=== PATIENT | female | born 2000 | race Caucasian/White ===

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

== ENCOUNTER 2020-11-18 09:15 | Emergency (ER) | payer OTHER ==
[2020-11-18 09:19] VITALS: BP 126/84; PULSE 101; RESP 20; TEMP 98
[2020-11-18] MEDS ORDERED: DIPH,PERTUS(ACELL)TETVAC-LF 0.5 ML VIAL IM ONE (09:28)
--- NOTE | 2020-11-18 09:30 | ED ---
Animal Bite HPI - General Chief Complaint: Animal Bite Stated Complaint: dog bite rt thumb Time Seen by Provider: 11/18/20 09:20 Source: patient, RN notes reviewed Mode of arrival: ambulatory Limitations: no limitations - History of Present Illness Initial Comments: This a 20-year-old female sent emergency Department chief complaint of dog bite. Patient states she was bit by her significant other's dog yesterday. She is unsure when her last tetanus was. up-to-date vaccinations. Patient states that his slightly painful today. No fevers or chills mild redness no other complaints. - Related Data Home Medications Medication Instructions Recorded Confirmed Methylphenidate HCl [Concerta] 72 mg PO DAILY 08/15/15 08/26/17 Cetirizine HCl [Zyrtec] 10 mg PO HS 03/07/17 08/26/17 Falmina-28 1 tab PO DAILY 03/07/17 08/26/17 Montelukast [Singulair] 10 mg PO HS 03/07/17 08/26/17 cloNIDine HCL [Catapres] 0.2 mg PO HS 03/07/17 08/26/17 guanFACINE HCL [Intuniv] 2 mg PO DAILY 03/07/17 08/26/17 hydrOXYzine pamoate [Vistaril] 50 mg PO HS 08/26/17 08/26/17 Previous Rx's Medication Instructions Recorded Ondansetron [Zofran ODT] 4 mg PO Q8HR PRN #10 tab 11/01/17 Cephalexin [Keflex] 500 mg PO Q6HR #28 cap 12/07/17 Ibuprofen [Motrin] 600 mg PO Q6HR PRN #30 tab 12/07/17 Amoxicillin/Potassium Clav 1 tab PO Q12HR #20 tab 11/18/20 [Augmentin 875-125 Tablet] Allergies Allergy/AdvReac Type Severity Reaction Status Date / Time No Known Allergies Allergy Verified 11/18/20 09:19 Review of Systems ROS Statement: Those systems with pertinent positive or pertinent negative responses have been documented in the HPI. ROS Other: All systems not noted in ROS Statement are negative. Past Medical History Past Medical History: No Reported History History of Any Multi-Drug Resistant Organisms: None Reported Past Surgical History: No Surgical Hx Reported Past Psychological History: ADD/ADHD Smoking Status: Never smoker Past Alcohol Use History: None Reported Past Drug Use History: None Reported General Exam Limitations: no limitations General appearance: alert, in no apparent distress Head exam: Present: atraumatic, normocephalic, normal inspection Respiratory exam: Present: normal lung sounds bilaterally. Absent: respiratory distress, wheezes, rales, rhonchi, stridor Cardiovascular Exam: Present: regular rate, normal rhythm, normal heart sounds. Absent: systolic murmur, diastolic murmur, rubs, gallop, clicks Extremities exam: Present: other (Right thumb there are a few puncture wounds noted mild erythema patient does have mild discomfort over the area full range of motion neurovascular intact no evidence of lymphangitis) Course Vital Signs 11/18/20 09:16 Temperature 98 F Pulse Rate 101 H Respiratory 20 Rate Blood Pressure 126/84 O2 Sat by Pulse 99 Oximetry Medical Decision Making - Medical Decision Making Patient's tetanus is updated patient was placed on Augmentin. Patient will follow-up for recheck in 24 hours return parameters were discussed. Disposition Clinical Impression: Dog bite Disposition: HOME SELF-CARE Condition: Stable Instructions (If sedation given, give patient instructions): Animal Bite (ED) Additional Instructions: Please return to the Emergency Department if symptoms worsen or any other concerns. Prescriptions: Amoxicillin/Potassium Clav [Augmentin 875-125 Tablet] 1 tab PO Q12HR #20 tab Is patient prescribed a controlled substance at d/c from ED?: No Referrals: Denis Marsh DO [Primary Care Provider] - 1-2 days Time of Disposition: 09:30
== END 2020-11-18 09:45 | disposition home or self-care (01) ==
LOC: EC 09:15
DX: S61.031A Puncture wound without foreign body of right thumb without damage to nail, initial encounter (principal); Z23 Encounter for immunization; F90.9 Attention-deficit hyperactivity disorder, unspecified type; W54.0XXA Bitten by dog, initial encounter
CPT/HCPCS: 90471; 90715; 99283

== ENCOUNTER 2020-11-27 00:51 | Emergency (ER) | payer OTHER ==
[2020-11-27 00:59] VITALS: BP 124/67; PULSE 95; RESP 18; TEMP 98.2
[2020-11-27] MEDS ORDERED: NEOMYCIN-POLYMYXIN-HC (3.5-10,000-10 MG) OTIC DROPS 10 ML BTL RIGHT EAR STA (01:25)
--- NOTE | 2020-11-27 01:26 | ED ---
ENT HPI - General Chief complaint: ENT Stated complaint: RT earache Time Seen by Provider: 11/27/20 01:00 Source: patient, family Mode of arrival: ambulatory Limitations: no limitations - History of Present Illness Initial comments: This patient is a 20-year-old woman who presents with complaint that she is having right ear pain. Symptoms started in the early afternoon today. She denies any change in her hearing. No vertigo. She is not having upper respiratory symptoms. No congestion, rhinorrhea, cough or sore throat. No ear trauma. No drainage from the ear. The patient states that she is 27 weeks by ultrasound. She denies any symptoms related to . MD complaint: ear pain Onset/Timin -: hour(s) Location: R ear Severity: moderate Quality: aching Consistency: constant Improves with: none Worsens with: other (Palpation) - Related Data Home Medications Medication Instructions Recorded Confirmed Methylphenidate HCl [Concerta] 72 mg PO DAILY 08/15/15 08/26/17 Cetirizine HCl [Zyrtec] 10 mg PO HS 03/07/17 08/26/17 Falmina-28 1 tab PO DAILY 03/07/17 08/26/17 Montelukast [Singulair] 10 mg PO HS 03/07/17 08/26/17 cloNIDine HCL [Catapres] 0.2 mg PO HS 03/07/17 08/26/17 guanFACINE HCL [Intuniv] 2 mg PO DAILY 03/07/17 08/26/17 hydrOXYzine pamoate [Vistaril] 50 mg PO HS 08/26/17 08/26/17 Previous Rx's Medication Instructions Recorded Ondansetron [Zofran ODT] 4 mg PO Q8HR PRN #10 tab 11/01/17 Cephalexin [Keflex] 500 mg PO Q6HR #28 cap 12/07/17 Ibuprofen [Motrin] 600 mg PO Q6HR PRN #30 tab 12/07/17 Amoxicillin/Potassium Clav 1 tab PO Q12HR #20 tab 11/18/20 [Augmentin 875-125 Tablet] Allergies Allergy/AdvReac Type Severity Reaction Status Date / Time No Known Allergies Allergy Verified 11/27/20 00:58 Review of Systems ROS Statement: Those systems with pertinent positive or pertinent negative responses have been documented in the HPI. ROS Other: All systems not noted in ROS Statement are negative. Constitutional: Denies: fever, chills ENT: Reports: ear pain. Denies: throat pain, dental pain, hearing loss, congestion Respiratory: Denies: cough, dyspnea Cardiovascular: Denies: chest pain, palpitations Gastrointestinal: Denies: abdominal pain, nausea, vomiting Neurological: Denies: headache Past Medical History Past Medical History: No Reported History History of Any Multi-Drug Resistant Organisms: None Reported Past Surgical History: No Surgical Hx Reported Past Psychological History: ADD/ADHD Smoking Status: Never smoker Past Alcohol Use History: None Reported Past Drug Use History: None Reported General Exam Limitations: no limitations General appearance: alert, in no apparent distress Head exam: Present: atraumatic, normocephalic Eye exam: Present: normal appearance. Absent: scleral icterus, conjunctival injection ENT exam: Present: normal oropharynx, mucous membranes moist, TM's normal bilaterally. Absent: normal external ear exam (Mild erythema and edema of the right external auditory canal. Tenderness at the tragus. Tympanic membrane normal.) Neck exam: Present: normal inspection, full ROM. Absent: tenderness, meningismus, lymphadenopathy Neurological exam: Present: alert Skin exam: Present: warm, dry, intact, normal color. Absent: rash Course Vital Signs 11/27/20 00:57 Temperature 98.2 F Pulse Rate 95 Respiratory 18 Rate Blood Pressure 124/67 O2 Sat by Pulse 99 Oximetry Medical Decision Making - Medical Decision Making Patient is a 20-year-old woman with acute otitis externa. Discussed appropriate treatment, further care and follow-up. Discussed use of acetaminophen for earache. Discussed return parameters Disposition Clinical Impression: Otitis externa Disposition: HOME SELF-CARE Condition: Good Instructions (If sedation given, give patient instructions): Otitis Externa (ED) Is patient prescribed a controlled substance at d/c from ED?: No Referrals: Denis Marsh DO [Primary Care Provider] - 1-2 days
== END 2020-11-27 02:09 | disposition home or self-care (01) ==
LOC: EC 00:51
DX: O99.893 Other specified diseases and conditions complicating puerperium (principal); H60.91 Unspecified otitis externa, right ear; Z3A.27 27 weeks gestation of pregnancy
CPT/HCPCS: 99282

== ENCOUNTER 2021-01-19 21:45 | Outpatient (CLI) | payer OTHER ==
[2021-01-19 22:59] VITALS: BP 121/76; PULSE 120; RESP 16; TEMP 98
--- NOTE | 2021-01-20 06:27 | P.MSEPDOC ---
Presenting Problems - Arrival Data Date of Arrival on Unit: 01/19/21 Time of Arrival on Unit: 21:45 Mode of Transport: Ambulatory - Complaint OB-Reason for Admission/Chief Complaint: Pain Comment: Pt states abd pain that has been happening since yesterday, unable to time pain. but states it comes and goes. Rates pain 8/10 when having pain. Medical History - Information : 1 Para: 0 Term: 0 : 0 Abortions: Spontaneous or Elective: 0 Number of Living Children: 0 - Gestational Age Gestational Age by YECENIA (wks/days): 35 Weeks and 0 Days Review of Systems - Review of Systems Constitutional: No problems Breast: No problems ENT: No problems Cardiovascular: No problems Respiratory: No problems Gastrointestinal: No problems Genitourinary: No problems Musculoskeletal: No problems Neurological: No problems Skin: No problems Vital Signs - Temperature Temperature: 98 F Temperature Source: Oral - Pulse Right Brachial Pulse Rate: 120 Pulse Assessment Method: Automatic Cuff - Respirations Respiratory Rate: 16 Oxygen Delivery Method: Room Air - Blood Pressure Right Arm Blood Pressure: 121/76 Blood Pressure Mean: 91 Blood Pressure Source: Automatic Cuff Medical Screen Scoring - Cervical Exam Dilation (cm): 0 Effacement (%): 0 Station: -3 Membranes: Intact - Uterine Contractions Frequency From (mins): 3 Frequency To (mins): 10 Duration From (seconds): 40 Duration To (seconds): 55 Intensity: Mild Resting: Soft to palpation - Assessment - Baby A Baseline FHR: 145 Heart Rate - NICHD Category: Category I (Normal) Physician Notification - Physician Notified Physician Notified Date: 01/19/21 Physician Notified Time: 21:41 Physician: Milo Torres New Order Received: Yes - Notification Comment Comment: D/c home at this time, follow up with Dr. Hampton 01/25/21 Maternal Triage Index - Maternal Triage Index Presenting for scheduled procedure w/no complaint: No - Stat/Priority 1 Stat Priority 1: No - Urgent/Priority 2 Urgent Priority 2: No - Prompt/Priority 3 Prompt Priority 3: Yes Criteria Met for Priority 3: GA 35 weeks, c/o contractions Disposition - Disposition OB Disposition: Discharge to home, Written follow up instructions reviewed Discharge Date: 01/19/21 Discharge Time: 21:45 I agree with the RN Medical Screening Exam: Yes Case reviewed; plan agreed upon as documented in EMR&OBIX.: Yes Diagnosis: FALSE LABOR BEFORE 37 COMPLETED WEEKS OF GEST, THIRD TRI
== END 2021-01-19 22:45 | disposition home or self-care (01) ==
LOC: FBPOP 21:45
PROVIDERS: ATTEND Obstetrics & Gynecology
DX: O47.03 False labor before 37 completed weeks of gestation, third trimester (principal); Z3A.35 35 weeks gestation of pregnancy
CPT/HCPCS: 59025; G0463; 99213

== ENCOUNTER 2021-02-18 20:10 | Outpatient (CLI) | payer OTHER ==
[2021-02-18 21:35] VITALS: BP 137/80; PULSE 104; RESP 16; TEMP 96.6
--- NOTE | 2021-02-19 11:53 | P.MSEPDOC ---
Presenting Problems - Arrival Data Date of Arrival on Unit: 02/18/21 Time of Arrival on Unit: 20:10 Mode of Transport: Ambulatory - Complaint OB-Reason for Admission/Chief Complaint: Possible Onset of Labor Comment: Contractions every 3 minutes since 1800, pain 10 Medical History - Information : 1 Para: 0 Term: 0 : 0 Abortions: Spontaneous or Elective: 0 Number of Living Children: 0 - Gestational Age Gestational Age by YECENIA (wks/days): 39 Weeks and 2 Days Review of Systems - Review of Systems Constitutional: No problems Breast: No problems ENT: No problems Cardiovascular: No problems Respiratory: No problems Gastrointestinal: No problems Genitourinary: No problems Musculoskeletal: No problems Neurological: No problems Skin: No problems Vital Signs - Temperature Temperature: 96.6 F Temperature Source: Temporal Artery Scan - Pulse Right Brachial Pulse Rate: 104 Pulse Assessment Method: Automatic Cuff - Respirations Respiratory Rate: 16 Oxygen Delivery Method: Room Air - Blood Pressure Right Arm Blood Pressure: 137/80 Blood Pressure Mean: 99 Blood Pressure Source: Automatic Cuff Medical Screen Scoring - Cervical Exam Dilation (cm): 1.5 Effacement (%): 80 Station: -2 Membranes: Intact - Uterine Contractions Intensity: Mild Resting: Soft to palpation - Assessment - Baby A Baseline FHR: 135 Heart Rate - NICHD Category: Category I (Normal) NST: Reactive Physician Notification - Physician Notified Physician Notified Date: 02/18/21 Physician Notified Time: 21:18 Physician: Selene Louis Order Received: Yes - Notification Comment Comment: D/c home, pt to return to [facility] for [facility]OL on saturday02/20/21 Maternal Triage Index - Maternal Triage Index Presenting for scheduled procedure w/no complaint: No - Stat/Priority 1 Stat Priority 1: No - Urgent/Priority 2 Urgent Priority 2: No - Prompt/Priority 3 Prompt Priority 3: No - Non-Urgent/Priority 4 Non-Urgent Priority 4: Yes Criteria Met for Priority 4: Contractions every 3 minutes per pt Disposition - Disposition OB Disposition: Discharge to home, Written follow up instructions reviewed Discharge Date: 02/18/21 Discharge Time: 21:20 I agree with the RN Medical Screening Exam: Yes Case reviewed; plan agreed upon as documented in EMR&OBIX.: Yes Diagnosis: FALSE LABOR AT OR AFTER 37 COMPLETED WEEKS OF GESTATION
== END 2021-02-18 21:22 | disposition home or self-care (01) ==
LOC: FBPOP 20:10
PROVIDERS: ATTEND Obstetrics & Gynecology
DX: O47.1 False labor at or after 37 completed weeks of gestation (principal); Z3A.39 39 weeks gestation of pregnancy
CPT/HCPCS: 59025; G0463; 99213

== ENCOUNTER 2021-02-19 19:43 | Inpatient (IN) | payer OTHER ==
[2021-02-19] MEDS ORDERED: CARBOPROST TROMETHAMINE 250 MCG/ML 1 ML AMP IM PRN (21:18)
[2021-02-19] MEDS ORDERED: METHYLERGONOVINE 0.2 MG/ML 1 ML AMP IM PRN (21:18)
[2021-02-19] MEDS ORDERED: TERBUTALINE 1 MG/ML VIAL SQ PRN (21:18)
[2021-02-19] MEDS ORDERED: LIDOCAINE 0.5% (PF) 5 MG/ML (50 ML SDV) SQ PRN (21:18)
[2021-02-19] MEDS ORDERED: OXYTOCIN 10 UNIT/ML 1 ML VIAL IM PRN (21:18)
[2021-02-19] MEDS ORDERED: OXYTOCIN 30 UNITS/500 ML NS 30 UNIT in SALINE 1 500ML.BAG IV SCH (21:30)
[2021-02-19] MEDS ORDERED: BUTORPHANOL 1 MG/ML 1 ML VIAL IV PRN (22:43)
[2021-02-19 23:04] LABS: Basophils # (A) 0.1 k/uL (0-0.2); Basophils % (A) 0 %; Eosinophils # (A) 0.3 k/uL (0-0.7); Eosinophils % (A) 2 %; HCT 36.2 % (34.0-46.0); HGB 12.1 gm/dL (11.4-16.0); Lymphocytes # (A) 2.4 k/uL (1.0-4.8); Lymphocytes % (A) 13 %; MCH 27.7 pg (25.0-35.0); MCHC 33.5 g/dL (31.0-37.0); MCV 82.6 fL (80.0-100.0); Mean Platelet Volume 9.5; Monocytes # (A) 1.2 k/uL (0-1.0); Monocytes % (A) 7 %; Neutrophils % (A) 77 %; Platelet Count 313 k/uL (150-450); RBC 4.39 m/uL (3.80-5.40); RDW 13.1 % (11.5-15.5); WBC 18.3 k/uL (4.0-11.0)
[2021-02-19] MEDS: LACTATED RINGERS 1,000 ML IV SCH (23:19)
[2021-02-20] MEDS: LACTATED RINGERS 1,000 ML IV SCH ×4 (01:54→11:27)
--- NOTE | 2021-02-20 02:29 | P.HPOB ---
History of Present Illness H&P Date: 02/20/21 Chief Complaint: Contractions This is a 20-year-old female 1 para 0 with an estimated date of confinement of 02/23/2021, estimated gestational age of 39-3/7 weeks, who presents to labor and delivery complaining of contractions for the last few days that became stronger this evening. She denies any rupture of membranes. She does state she was noticing her mucous plug coming out. care has been with Dr. Hampton and has been essentially uncomplicated. labs: Group B streptococcus-negative Hemoglobin-11.5 1 hour Glucola-121 Obstetrical ultrasound-normal anatomy Blood type-A- Antibody screen-negative Hemoglobin-11.9 Rubella-immune RPR-nonreactive H IV-negative Hepatitis B surface antigen-negative GC/chlamydia-negative Trichomonas-negative RhoGAM was given at approximately 35 weeks Review of Systems Constitutional: Denies chills, Denies fever Eyes: denies blurred vision, denies pain Ears, nose, mouth and throat: Denies headache, Denies sore throat Cardiovascular: Denies chest pain, Denies shortness of breath Respiratory: Denies cough Gastrointestinal: Reports abdominal pain (Contractions) Genitourinary: Reports pelvic pain, Reports Musculoskeletal: Reports low back pain Integumentary: Denies pruritus, Denies rash Neurological: Denies numbness, Denies weakness Psychiatric: Reports anxiety Past Medical History Past Medical History: No Reported History History of Any Multi-Drug Resistant Organisms: None Reported Past Surgical History: No Surgical Hx Reported Past Anesthesia/Blood Transfusion Reactions: No Reported Reaction Past Psychological History: ADD/ADHD Smoking Status: Never smoker Past Alcohol Use History: None Reported Past Drug Use History: None Reported - Past Family History Mother Family Medical History: Osteoarthritis (OA) Medications and Allergies Home Medications Medication Instructions Recorded Confirmed Type Cholecalciferol (Vitamin D3) 125 mcg PO DAILY 01/19/21 02/19/21 History [Vitamin D3 (125 MCG = 5,000 IU)] Pnv No.95/Ferrous Fum/Folic AC 1 tab PO ONCE 01/19/21 02/19/21 History [ Multivitamin Tablet] Allergies Allergy/AdvReac Type Severity Reaction Status Date / Time No Known Allergies Allergy Verified 02/18/21 21:30 Exam Osteopathic Statement: *. No significant issues noted on an osteopathic structural exam other than those noted in the History and Physical/Consult. Vital Signs Temp Pulse Resp BP Pulse Ox 02/19/21 21:50 94 18 139/78 98 02/19/21 20:06 35.4 F L 123 H 18 155/85 98 Intake and Output 02/19/21 02/19/21 02/20/21 14:59 22:59 06:59 Other: # Voids 2 Weight 83.007 kg HEENT: Within normal limits Heart: Regular rate and rhythm Lungs: Clear to auscultation bilaterally Abdomen: Cervix: Initially on admission is 2 cm/80%/-3 station. Currently she is 7-8 cm /100%/-2 station. Bulging bag of noted and artificial rupture membranes is carried out with clear fluid noted. heart tones: 140s with initially category 1 tracing. Currently after her epidural, she has had some late decelerations that have resolved with position changes. Contractions: Every couple minutes Extremities: Negative Homans Results Result Diagrams: 02/19/21 22:53 Abnormal Lab Results - Last 24 Hours (Table) 02/19/21 Range/Units 22:53 WBC 18.3 H (4.0-11.0) k/uL Neutrophils # 14.0 H (1.3-7.7) k/uL Monocytes # 1.2 H (0-1.0) k/uL Assessment and Plan (1) 39 weeks gestation of Current Visit: Yes Status: Acute Code(s): Z3A.39 - 39 WEEKS GESTATION OF SNOMED Code(s): 52343959 Plan: Admission for active labor. Epidural anesthesia. Expectant management.
[2021-02-20] MEDS ORDERED: AMPICILLIN 2,000 MG in SODIUM CHLORIDE 0.9% 100 ML IVPB STA (03:11)
[2021-02-20] MEDS ORDERED: CITRIC ACID-SODIUM CITRATE 15 ML CUP PO ONE (03:52)
--- NOTE | 2021-02-20 05:03 | P.OP ---
Date of Procedure: 02/20/21 Preoperative Diagnosis: 1. Intrauterine at 39-3/7 weeks. 2. tachycardia with decreased variability. Postoperative Diagnosis: Same Procedure(s) Performed: Primary low transverse section Anesthesia: epidural Surgeon: Selene Louis Code Official #1: Jazz Viramontes Estimated Blood Loss (ml): 400 Pathology: other (Placenta) Condition: stable Disposition: floor Indications for Procedure: This is a 20-year-old female 1 para 0 at 39-3/7 weeks who presented in early active labor. When she arrived she was noted to be 2 cm and did make change to 4 cm.She did receive 1 dose of Stadol and then requested epidural. Shortly after the epidural, she began having some late decelerations. These did resolve somewhat with position changing. Artificial rupture membranes was carried out at 7-1/2 cm. Clear fluid was noted. Shortly after this, she began having progressive tachycardia up to the 170s to 180s with decreased variability. She was started on ampicillin due to elevated white count despite group B strep negative. When this did not resolve, the decision was made to proceed with urgent Kelsi a section. I have discussed the risks, benefits, and alternative therapies for the above- mentioned procedure and for both sedation/anesthesia as well as necessary blood products administration, if indicated, as they pertain to this patient. The patient has indicated her understanding and acceptance of the risks and procedures discussed. Operative Findings: A viable male infant is noted in the vertex presentation with scores of 5 at 1 minute 6 at 5 minutes and 9 at 10 minutes and nuchal cord times one. Infant weight was 7 lbs. 7 oz. Normal uterus tubes and ovaries are noted. Description of Procedure: The patient is taken to the operating room where she is placed in the dorsal supine position with leftward tilt after Epidural anesthesia is bolused. She is prepped and draped in the normal sterile fashion including vaginal prep. Skin was tested and found to be adequately anesthetized. A Pfannenstiel skin incision was made with a scalpel. A second knife was used to carry the incision down to the underlying layer of fascia. The fascia was nicked in the midline with a scalpel and then extended laterally bilaterally with Armenta scissors. The anterior lip of the fascia was grasped with 2 Latoya clamps and then dissected off the underlying rectus muscle in the midline with Armenta scissors. The inferior aspect of the fascial incision was grasped with 2 Latoya clamps and dissected off the underlying rectus muscle and the midline with Armenta scissors. Next the peritoneum layer was tented up with 2 hemostats and then entered sharply with the scalpel. The incision is extended superiorly and inferiorly with Metzenbaum scissors. Next a DeLee retractor is placed. The vesicouterine peritoneum is entered sharply with Metzenbaum scissors and extended laterally bilaterally with Metzenbaum scissors and then the bladder flap is pushed i nferiorly. The lower uterine segment is incised in transverse fashion with the scalpel and then bluntly entered with a hemostat. Clear fluid is noted. The incision was then extended laterally bilaterally with 2 fingers. Next the 's head is delivered through the incision. Nose and mouth are bulb suctioned. Nuchal cord 1 is reduced around the 's head. The remainder of the is easily delivered and placed on mother's abdomen. Cord is clamped and cut. is taken to warmer by nursing staff. Uterine fundus is gently massaged and placenta is delivered manually. Uterus is exteriorized and cleared of all clots and debris. Uterine incision is closed with 0 Vicryl suture in a running locked fashion. A second layer of 0 Vicryl suture is used in a running fashion for hemostasis. Once adequate hemostasis as assured, the vesicouterine peritoneum is reapproximated with 2-0 Vicryl suture in a running fashion. Posterior cul-de-sac is suctioned of all clots and debris. Uterus is returned to the abdomen. Incision is noted to be hemostatic. Peritoneal layer is closed with 0 Vicryl suture in a running fashion. Muscle layer is reapproximated with 0 Vicryl suture in interrupted fashion. Fascia layer is then closed with 0 PDS suture with 2 sutures meeting in the midline and the knots buried in either side and in the midline. The subcutaneous tissue was then closed with 2-0 Vicryl suture. Skin layer was then closed with black. All sponge and needle counts are correct. The patient is taken to recovery room in stable condition. is taken to level I nursery for further evaluation.
[2021-02-20] MEDS ORDERED: HYDROmorphone 0.5 MG/0.5 ML SYRINGE IVP PRN (05:29)
[2021-02-20] MEDS ORDERED: ZOLPIDEM 5 MG TAB PO PRN (05:29)
[2021-02-20] MEDS ORDERED: SIMETHICONE 80 MG CHEWABLE PO PRN (05:29)
[2021-02-20] MEDS ORDERED: HYDROmorphone 1 MG/ML 1 ML SYRINGE IVP PRN (05:29)
[2021-02-20] MEDS ORDERED: ONDANSETRON 4 MG/2 ML VIAL IVP PRN (05:29)
[2021-02-20] MEDS ORDERED: diphenhydrAMINE 25 MG CAP PO PRN (05:29)
[2021-02-20] MEDS ORDERED: diphenhydrAMINE 50 MG/ML 1 ML VIAL IVP PRN ×2 (05:29)
[2021-02-20] MEDS ORDERED: diphenhydrAMINE 50 MG CAP PO PRN (05:29)
[2021-02-20] MEDS ORDERED: HYDROmorphone PCA 10 MG/50 ML BAG IV PRN (05:29)
[2021-02-20] MEDS ORDERED: OXYTOCIN 30 UNITS/500 ML NS 30 UNIT in SALINE 1 500ML.BAG IV SCH (05:29)
[2021-02-20] MEDS ORDERED: PRENATAL VIT-IRON-FOLIC ACID 1 EACH CAP PO ONE (05:29)
[2021-02-20] MEDS ORDERED: NALOXONE 0.4 MG/ML 1 ML VIAL IV PRN (05:29)
[2021-02-20] MEDS ORDERED: METOCLOPRAMIDE 5 MG/ML 2 ML VIAL IVP PRN (05:29)
[2021-02-20] MEDS: ACETAMINOPHEN TAB 500 MG TAB PO SCH ×3 (06:59→17:48)
[2021-02-20] MEDS ORDERED: AMPICILLIN 1,000 MG in SODIUM CHLORIDE 0.9% 50 ML IVPB SCH (07:15)
[2021-02-20] MEDS: SENNOSIDES-DOCUSATE SODIUM 1 EACH TAB PO SCH ×2 (08:34→19:31)
[2021-02-20] MEDS: KETOROLAC 15 MG/ML 1 ML VIAL IVP SCH ×2 (09:35→19:00)
[2021-02-20] MEDS: CHOLECALCIFEROL 25 MCG (1000 IU) TABLET PO SCH (09:36)
[2021-02-20] MEDS: PRENATAL VIT-IRON-FOLIC ACID 1 EACH CAP PO SCH (09:42)
[2021-02-20] MEDS: IBUPROFEN 600 MG TAB PO SCH ×3 (10:37→21:28)
[2021-02-20 11:40] VITALS: RESP 16
[2021-02-21] MEDS: ACETAMINOPHEN TAB 500 MG TAB PO SCH ×3 (04:12→22:10)
--- NOTE | 2021-02-21 08:04 | P.PN ---
Progress Note - Text Progress Note Date: 02/21/21 Status post , patient received spinal Duramorph for postop pain control. Patient was seen and examined bedside. Patient is comfortable lying down on the bed. Patient is able to walk without any difficulty. Denied any side effects with medications. Denied any bowel or bladder problems. Patient is hemodynamically stable. Vital signs reviewed in EMR.
[2021-02-21] MEDS: SENNOSIDES-DOCUSATE SODIUM 1 EACH TAB PO SCH ×2 (08:33→20:51)
[2021-02-21] MEDS: CHOLECALCIFEROL 25 MCG (1000 IU) TABLET PO SCH (08:34)
[2021-02-21] MEDS: PRENATAL VIT-IRON-FOLIC ACID 1 EACH CAP PO SCH (08:34)
[2021-02-21] MEDS: IBUPROFEN 600 MG TAB PO SCH ×3 (08:35→20:54)
[2021-02-21 08:39] LABS: Basophils # (A) 0.1 k/uL (0-0.2); Basophils % (A) 0 %; Eosinophils # (A) 0.2 k/uL (0-0.7); Eosinophils % (A) 1 %; HCT 35.8 % (34.0-46.0); HGB 11.5 gm/dL (11.4-16.0); Lymphocytes # (A) 1.9 k/uL (1.0-4.8); Lymphocytes % (A) 12 %; MCH 27.7 pg (25.0-35.0); MCHC 32.1 g/dL (31.0-37.0); MCV 86.3 fL (80.0-100.0); Mean Platelet Volume 7.2; Monocytes # (A) 0.6 k/uL (0-1.0); Monocytes % (A) 4 %; Neutrophils # (A) 13.6 k/uL (1.3-7.7); Neutrophils % (A) 82 %; Platelet Count 295 k/uL (150-450); RBC 4.14 m/uL (3.80-5.40); RDW 13.3 % (11.5-15.5); WBC 16.5 k/uL (4.0-11.0)
[2021-02-22] MEDS: ACETAMINOPHEN TAB 500 MG TAB PO SCH ×2 (00:02→06:30)
[2021-02-22] MEDS: IBUPROFEN 600 MG TAB PO SCH (04:17)
[2021-02-22 08:07] VITALS: BP 124/61; PULSE 75; TEMP 98.2
[2021-02-22] MEDS: PRENATAL VIT-IRON-FOLIC ACID 1 EACH CAP PO SCH (08:17)
[2021-02-22] MEDS: SENNOSIDES-DOCUSATE SODIUM 1 EACH TAB PO SCH (08:17)
[2021-02-22] MEDS: CHOLECALCIFEROL 25 MCG (1000 IU) TABLET PO SCH (08:17)
--- NOTE | 2021-02-22 08:19 | P.PNOBGPC ---
Subjective - Subjective Principal diagnosis: Status post primary low transverse postop day #1 Interval history: Patient seen and examined. Denies nausea, vomiting, chest pain, shortness of breath or calf pain. Patient reports: Reports appetite normal, Reports voiding normally, Reports pain well controlled, Reports ambulating normally : doing well Objective - Vital Signs Latest vital signs: Vital Signs Temp Pulse Resp BP 02/22/21 08:00 98.2 F 75 16 124/61 02/22/21 00:00 97.6 F 83 16 128/81 02/21/21 16:00 98.3 F 62 16 112/72 Intake and Output 02/21/21 02/22/21 02/22/21 22:59 06:59 14:59 Other: # Voids 1 1 - Exam Lungs: bilateral: normal Chest: Normal S1, Normal S2 Extremities: Present: normal Abdomen: Present: normal appearance, soft. Absent: distention, tenderness Incision: Present: normal, dry, intact Uterus: Present: normal, firm - Labs Labs: Abnormal Lab Results - Last 24 Hours (Table) 02/21/21 Range/Units 07:59 WBC 16.5 H (4.0-11.0) k/uL Neutrophils # 13.6 H (1.3-7.7) k/uL Assessment and Plan (1) Status post primary low transverse section Current Visit: Yes Status: Acute Code(s): Z98.891 - HISTORY OF UTERINE SCAR FROM PREVIOUS SURGERY SNOMED Code(s): 722469453 Plan: 1. Increase ambulation 2. Regular diet 3. Pain control
--- NOTE | 2021-02-22 08:21 | P.DS ---
Providers Date of admission: 02/19/21 21:14 Expected date of discharge: 02/22/21 Attending physician: Arielle Hampton Primary care physician: Stated None - Discharge Diagnosis(es) (1) Status post primary low transverse section Current Visit: Yes Status: Acute Hospital Course: Patient presented in labor. She underwent a primary low transverse for failure to progress. She denies nausea, vomiting, chest pain, shortness of breath or any calf pain. Her incision is clean, dry, intact. Patient will be discharged home postoperative day #2 in stable condition to follow-up with me in one week. Plan - Discharge Summary New Discharge Prescriptions: New Ibuprofen [Motrin] 600 mg PO Q6H PRN #30 tab PRN Reason: Pain oxyCODONE HCL [OxyIR] 5 mg PO Q4HR PRN #12 tab PRN Reason: Pain Scale 4 - 6 No Action Pnv No.95/Ferrous Fum/Folic AC [ Multivitamin Tablet] 1 tab PO ONCE Cholecalciferol (Vitamin D3) [Vitamin D3 (125 MCG = 5,000 IU)] 125 mcg PO DAILY Discharge Medication List Cholecalciferol (Vitamin D3) [Vitamin D3 (125 MCG = 5,000 IU)] 125 mcg PO DAILY 01/19/21 [History] Pnv No.95/Ferrous Fum/Folic AC [ Multivitamin Tablet] 1 tab PO ONCE 01/19/21 [History] Ibuprofen [Motrin] 600 mg PO Q6H PRN #30 tab 02/22/21 [Rx] oxyCODONE HCL [OxyIR] 5 mg PO Q4HR PRN #12 tab 02/22/21 [Rx] Follow up Appointment(s)/Referral(s): Arielle Hampton DO [Doctor of Osteopathic Medicine] - 04/04/21 10:45 am (Post Op 03-01-2021 @ 01:45 p.m.) Discharge Disposition: HOME SELF-CARE
== END 2021-02-22 11:30 | disposition home or self-care (01) | DRG 788 ==
LOC: FBPOP 19:43 → 4FBP 21:14
PROVIDERS: ADMIT Obstetrics & Gynecology; ATTEND Obstetrics & Gynecology
PROC: 10D00Z1 Extraction of Products of Conception, Low, Open Approach (ICD-10-PCS; principal; 2021-02-20 04:26)
DX: O76 Abnormality in fetal heart rate and rhythm complicating labor and delivery (principal); Z3A.39 39 weeks gestation of pregnancy; Z37.0 Single live birth; O99.344 Other mental disorders complicating childbirth; O69.81X0 Labor and delivery complicated by cord around neck, without compression, not applicable or unspecified; F90.9 Attention-deficit hyperactivity disorder, unspecified type; O62.2 Other uterine inertia
CPT/HCPCS: 59025; 85025; 86850; 86870; 86880; 86900; 86901; 99213

== ENCOUNTER → 2021-07-07 | Outpatient (CLI) | payer OTHER ==
--- NOTE | 2021-07-08 11:27 | XR ---
EXAMINATION TYPE: XR scoliosis survey DATE OF EXAM: 07/07/2021 COMPARISON: NONE HISTORY: Abnormal clinical exam with low back pain TECHNIQUE: 4 views submitted FINDINGS: There is a reverse S-shaped scoliosis of the thoracolumbar spine measuring approximately 19 degrees. Pedicles are intact. Vertebral body disc interspace maintained. IMPRESSION: Scoliotic curvature thoracolumbar spine measuring approximately 19 degrees
== END | disposition home or self-care (01) ==
LOC: RADXRMAIN 16:51
PROVIDERS: ATTEND Family Medicine
DX: M41.85 Other forms of scoliosis, thoracolumbar region (principal)
CPT/HCPCS: 72082

== ENCOUNTER 2021-10-09 02:06 | Emergency (ER) | payer OTHER ==
[2021-10-09 02:32] VITALS: BP 120/82; PULSE 97; RESP 19; TEMP 98.4
[2021-10-09] MEDS ORDERED: ONDANSETRON 4 MG TAB PO STA (02:39)
[2021-10-09] MEDS ORDERED: MAG HYDROX/AL HYDROX/SIMETH 30 ML, HYOSCYAMINE ELIXIR 10 ML, LIDOCAINE VISCOUS 2% 10 ML PO STA ×3 (02:39)
--- NOTE | 2021-10-09 03:20 | XR ---
EXAMINATION TYPE: XR KUB DATE OF EXAM: 10/09/2021 COMPARISON: NONE HISTORY: Abdominal pain TECHNIQUE: Single view FINDINGS: There is no sign of intestinal obstruction or pneumoperitoneum. Fecal pattern is normal. Th ere is mild lumbar dextroscoliosis. There are no calcifications over the kidneys. IMPRESSION: Nonacute abdomen.
[2021-10-09] MEDS ORDERED: IBUPROFEN 600 MG TAB PO STA (04:03)
[2021-10-09] MEDS ORDERED: ACETAMINOPHEN TAB 325 MG TAB PO STA (04:03)
--- NOTE | 2021-10-09 04:10 | ED ---
Abdominal Pain HPI - General Chief Complaint: Abdominal Pain Stated Complaint: Abdominal pain Time Seen by Provider: 10/09/21 03:44 Source: patient, RN notes reviewed, old records reviewed Mode of arrival: ambulatory Limitations: no limitations - History of Present Illness Initial Comments: This is a 21-year-old female DF for evaluation of abdominal pain with nausea vomiting nonspecific abdominal pain. Patient nature migrating. Periumbilical no dysuria no current active vomiting. No fevers no travel history no sick contacts no prior history of similar abdominal pain. MD Complaint: abdominal pain -: hour(s) Location: diffuse, periumbilical Radiation: suprapubic Migration to: no migration Severity: mild Severity scale (1-10): 3 Quality: cramping Consistency: intermittent Improves With: nothing Worsens With: nothing Context: possible food poisoning Associated Symptoms: nausea, vomiting Treatments Prior to Arrival: other (none) - Related Data Home Medications Medication Instructions Recorded Confirmed Cholecalciferol (Vitamin D3) 125 mcg PO DAILY 01/19/21 02/19/21 [Vitamin D3 (125 MCG = 5,000 IU)] Pnv No.95/Ferrous Fum/Folic AC 1 tab PO ONCE 01/19/21 02/19/21 [ Multivitamin Tablet] Previous Rx's Medication Instructions Recorded Ibuprofen [Motrin] 600 mg PO Q6H PRN #30 tab 02/22/21 oxyCODONE HCL [OxyIR] 5 mg PO Q4HR PRN #12 tab 02/22/21 Allergies Allergy/AdvReac Type Severity Reaction Status Date / Time No Known Allergies Allergy Verified 10/09/21 02:32 Review of Systems ROS Statement: Those systems with pertinent positive or pertinent negative responses have been documented in the HPI. ROS Other: All systems not noted in ROS Statement are negative. Past Medical History Past Medical History: No Reported History History of Any Multi-Drug Resistant Organisms: None Reported Past Surgical History: Section Additional Past Surgical History / Comment(s): c section jan 2021 Past Anesthesia/Blood Transfusion Reactions: No Reported Reaction Past Psychological History: ADD/ADHD Smoking Status: Never smoker Past Alcohol Use History: None Reported Past Drug Use History: None Reported - Past Family History Mother Family Medical History: Osteoarthritis (OA) General Exam General appearance: alert, in no apparent distress Head exam: Present: atraumatic, normocephalic, normal inspection Eye exam: Present: normal appearance, PERRL, EOMI. Absent: scleral icterus, conjunctival injection, periorbital swelling ENT exam: Present: normal exam, mucous membranes moist Neck exam: Present: normal inspection. Absent: tenderness, meningismus, lymp hadenopathy Respiratory exam: Present: normal lung sounds bilaterally. Absent: respiratory distress, wheezes, rales, rhonchi, stridor Cardiovascular Exam: Present: regular rate, normal rhythm, normal heart sounds. Absent: systolic murmur, diastolic murmur, rubs, gallop, clicks GI/Abdominal exam: Present: soft, normal bowel sounds. Absent: distended, tenderness, guarding, rebound, rigid Extremities exam: Present: normal inspection, full ROM, normal capillary refill. Absent: tenderness, pedal edema, joint swelling, calf tenderness Back exam: Present: normal inspection Neurological exam: Present: alert, oriented X3, CN II-XII intact Psychiatric exam: Present: normal affect, normal mood Skin exam: Present: warm, dry, intact, normal color. Absent: rash Course Vital Signs 10/09/21 02:22 Temperature 98.4 F Pulse Rate 97 Respiratory 19 Rate Blood Pressure 120/82 O2 Sat by Pulse 98 Oximetry - Reevaluation(s) Reevaluation #1: 10/09/21 04:20 Medical record is reviewed Reevaluation #2: 10/09/21 04:20 Patient has no abdominal tenderness, symptoms improved after nausea medication. Reevaluation #3: 10/09/21 04:20 Patient informed of results and questions answered Medical Decision Making - Medical Decision Making 21 female nonspecific abdominal pain. Symptoms improved here in the patient given nausea medication okay for discharge home - Lab Data Lab Results 10/09/21 10/09/21 Range/Units 02:23 02:51 Urine Color Yellow Urine Appearance Cloudy H (Clear) Urine pH 6.0 (5.0-8.0) Ur Specific [place] 1.031 (1.001-1.035) Urine Protein Trace H (Negative) Urine Glucose (UA) Negative (Negative) Urine Ketones Negative (Negative) Urine Blood Negative (Negative) Urine Nitrite Negative (Negative) Urine Bilirubin Negative (Negative) Urine Urobilinogen <2.0 (<2.0) mg/dL Ur Leukocyte Esterase Negative (Negative) Urine RBC 1 (0-5) /hpf Urine WBC 3 (0-5) /hpf Ur Squamous Epith Cells 5 H (0-4) /hpf Urine Bacteria Rare H (None) /hpf Urine Mucus Few H (None) /hpf Urine HCG, Qual Not Detected (Not Detectd) - Radiology Data Radiology results: report reviewed (X-ray KUB negative for acute disease), image reviewed Disposition Clinical Impression: Abdominal pain, Nausea & vomiting Disposition: HOME SELF-CARE Condition: Good Instructions (If sedation given, give patient instructions): Abdominal Pain (ED) Is patient prescribed a controlled substance at d/c from ED?: No Referrals: Denis Marsh DO [Primary Care Provider] - 1-2 days
[2021-10-09 04:11] LABS: Appearance,Urine Cloudy (Clear); Bacteria,Urine Rare /hpf; Bilirubin,Urine Negative (Negative); Blood,Urine Negative (Negative); Color,Urine Yellow; Glucose,Urine (UA) Negative (Negative); Ketones,Urine Negative (Negative); Leukocyte Esterase,Urine Negative (Negative); Mucus,Urine Few /hpf; Nitrite,Urine Negative (Negative); Protein,Urine Trace (Negative); RBC,Urine 1 /hpf (0-5); Specific Gravity,Urine 1.031 (1.001-1.035); Squamous Epithelial Cell,Urine 5 /hpf (0-4); Urobilinogen,Urine <2.0 mg/dL (<2.0); WBC,Urine 3 /hpf (0-5)
[2021-10-09] MEDS ORDERED: ONDANSETRON 4 MG ODT STARTER PACK 2 TAB BTL PO STA (04:25)
== END 2021-10-09 04:28 | disposition home or self-care (01) ==
LOC: EC 02:06
DX: R10.9 Unspecified abdominal pain (principal); R11.2 Nausea with vomiting, unspecified
CPT/HCPCS: 74018; 81001; 81025; 99284

== ENCOUNTER → 2021-11-08 | Outpatient (CLI) | payer OTHER | END | disposition home or self-care (01) | LOC: LABWHC1 14:44 | PROVIDERS: ATTEND Obstetrics & Gynecology | DX: N94.89 Other specified conditions associated with female genital organs and menstrual cycle (principal) | CPT/HCPCS: 36415; 84702 ==

== ENCOUNTER 2022-01-08 11:30 | Emergency (ER) | payer OTHER ==
[2022-01-08 12:01] VITALS: RESP 16; TEMP 98.6
[2022-01-08 13:13] LABS: Amorphous Sediment,Urine Moderate /hpf; Appearance,Urine Cloudy (Clear); Bacteria,Urine Rare /hpf; Bilirubin,Urine Negative (Negative); Blood,Urine Negative (Negative); Color,Urine Light Yellow; Glucose,Urine (UA) Negative (Negative); Ketones,Urine Negative (Negative); Leukocyte Esterase,Urine Negative (Negative); Mucus,Urine Occasional /hpf; Nitrite,Urine Negative (Negative); PH, Urine 7.5 (5.0-8.0); Protein,Urine Negative (Negative); RBC,Urine 1 /hpf (0-5); Specific Gravity,Urine 1.021 (1.001-1.035); Squamous Epithelial Cell,Urine 1 /hpf (0-4); Urobilinogen,Urine <2.0 mg/dL (<2.0); WBC,Urine 2 /hpf (0-5)
--- NOTE | 2022-01-08 13:39 | ED ---
General Adult HPI - General Chief complaint: Abdominal Pain Stated complaint: ABD pain Time Seen by Provider: 01/08/22 13:23 Source: patient Mode of arrival: ambulatory Limitations: no limitations - History of Present Illness Initial comments: Dictation was produced using [employer] dictation software. please excuse any grammatical, word or spelling errors. Chief Complaint: 21-year-old male presents emergency department for abdominal pa in History of Present Illness: Patient is a pleasant 21-year-old female with no significant comorbidities she states she woke up at around 8 AM this morning and was expressing abdominal pain. She has no diarrhea or fevers. Patient's history of section. The abdominal pain is shifting in nature. Denies any history of abnormal gallbladder or intra-abdominal medical history. Denies any nausea. Pain is not reproducible. States that her pain shifts whenever she moves. The ROS documented in this emergency department record has been reviewed and confirmed by me. Those systems with pertinent positive or negative responses have been documented in the HPI. All other systems are other negative and/or noncontributory. PHYSICAL EXAM: General Impression: Alert and oriented x3, not in acute distress HEENT: Normocephalic atraumatic, extra-ocular movements intact, pupils equal and reactive to light bilaterally, mucous membranes moist. Cardiovascular: Heart regular rate and rhythm Chest: Able to complete full sentences, no retractions, no tachypnea Abdomen: abdomen soft, non-tender, non-distended, no organomegaly, negative Gutiérrez sign, no pain at McBurney's point Musculoskeletal: Pulses present and equal in all extremities, no peripheral edema Motor: no focal deficits noted Neurological: CN II-XII grossly intact, no focal motor or sensory deficits noted Skin: Intact with no visualized rashes Psych: Normal affect and mood ED course: 21-year-old well-appearing female presents to emergency department for abdominal pain. Patient is well-appearing at the bedside. Physical examination is unremarkable. Vital Signs upon arrival are within acceptable limits. Laboratory evaluation obtained. CBC, metabolic panel is unremarkable. Urinalysis negative. Abdominal labs are negative. Abdominal x-ray shows no acute processes. Patient's abdominal examination is nonfocal for any concerning intra-abdominal processes. Patient has a very mild leukocytosis to point for patient's history of elevated leukocytosis. At this point no concerns for surgical abdomen. She is reevaluated bedside at 2:20 PM found to be stable medical condition. Patient smiling well-appearing. At this point no obvious cause for patient's symptoms. She has no high-risk features. She is agreeable to discharge. - Related Data Home Medications Medication Instructions Recorded Confirmed Cholecalciferol (Vitamin D3) 125 mcg PO DAILY 01/19/21 02/19/21 [Vitamin D3 (125 MCG = 5,000 IU)] Pnv No.95/Ferrous Fum/Folic AC 1 tab PO ONCE 01/19/21 02/19/21 [ Multivitamin Tablet] Previous Rx's Medication Instructions Recorded Ibuprofen [Motrin] 600 mg PO Q6H PRN #30 tab 02/22/21 oxyCODONE HCL [OxyIR] 5 mg PO Q4HR PRN #12 tab 02/22/21 Allergies Allergy/AdvReac Type Severity Reaction Status Date / Time No Known Allergies Allergy Verified 01/08/22 12:01 Review of Systems ROS Statement: Those systems with pertinent positive or pertinent negative responses have been documented in the HPI. ROS Other: All systems not noted in ROS Statement are negative. Past Medical History Past Medical History: Asthma Additional Past Medical History / Comment(s): Scoliosis History of Any Multi-Drug Resistant Organisms: None Reported Past Surgical History: Section Additional Past Surgical History / Comment(s): c section jan 2021 Past Anesthesia/Blood Transfusion Reactions: No Reported Reaction Past Psychological History: ADD/ADHD, Anxiety, Depression, Panic Disorder, PTSD Smoking Status: Vaper Past Alcohol Use History: None Reported Past Drug Use History: None Reported - Past Family History Mother Family Medical History: Osteoarthritis (OA) General Exam Limitations: no limitations Course Vital Signs 01/08/22 11:58 Temperature 98.6 F Pulse Rate 105 H Respiratory 16 Rate Blood Pressure 148/89 O2 Sat by Pulse 100 Oximetry Medical Decision Making - Lab Data Result diagrams: 01/08/22 13:53 01/08/22 13:53 Lab Results 01/08/22 01/08/22 01/08/22 Range/Units 12:08 12:08 13:53 WBC 12.4 H (3.8-10.6) k/uL RBC 4.78 (3.80-5.40) m/uL Hgb 13.1 (11.4-16.0) gm/dL Hct 39.8 (34.0-46.0) % MCV 83.3 (80.0-100.0) fL MCH 27.3 (25.0-35.0) pg MCHC 32.8 (31.0-37.0) g/dL RDW 13.2 (11.5-15.5) % Plt Count 398 (150-450) k/uL MPV 6.6 Neutrophils % 64 % Lymphocytes % 26 % Monocytes % 6 % Eosinophils % 1 % Basophils % 1 % Neutrophils # 7.9 H (1.3-7.7) k/uL Lymphocytes # 3.3 (1.0-4.8) k/uL Monocytes # 0.7 (0-1.0) k/uL Eosinophils # 0.2 (0-0.7) k/uL Basophils # 0.1 (0-0.2) k/uL Sodium (137-145) mmol/L Potassium (3.5-5.1) mmol/L Chloride (98-107) mmol/L Carbon Dioxide (22-30) mmol/L Anion Gap mmol/L BUN (7-17) mg/dL Creatinine (0.52-1.04) mg/dL Est GFR (CKD-EPI)AfAm (>60 ml/min/1.73 sqM) Est GFR (CKD-EPI)NonAf (>60 ml/min/1.73 sqM) Glucose (74-99) mg/dL Calcium (8.4-10.2) mg/dL Total Bilirubin (0.2-1.3) mg/dL AST (14-36) U/L ALT (4-34) U/L Alkaline Phosphatase (38-126) U/L Total Protein (6.3-8.2) g/dL Albumin (3.5-5.0) g/dL Lipase (23-300) U/L Urine Color Light Yellow Urine Appearance Cloudy H (Clear) Urine pH 7.5 (5.0-8.0) Ur Specific [place] 1.021 (1.001-1.035) Urine Protein Negative (Negative) Urine Glucose (UA) Negative (Negative) Urine Ketones Negative (Negative) Urine Blood Negative (Negative) Urine Nitrite Negative (Negative) Urine Bilirubin Negative (Negative) Urine Urobilinogen <2.0 (<2.0) mg/dL Ur Leukocyte Esterase Negative (Negative) Urine RBC 1 (0-5) /hpf Urine WBC 2 (0-5) /hpf Ur Squamous Epith Cells 1 (0-4) /hpf Amorphous Sediment Moderate H (None) /hpf Urine Bacteria Rare H (None) /hpf Urine Mucus Occasional H (None) /hpf Urine HCG, Qual Not Detected (Not Detectd) 01/08/22 Range/Units 13:53 WBC (3.8-10.6) k/uL RBC (3.80-5.40) m/uL Hgb (11.4-16.0) gm/dL Hct (34.0-46.0) % MCV (80.0-100.0) fL MCH (25.0-35.0) pg MCHC (31.0-37.0) g/dL RDW (11.5-15.5) % Plt Count (150-450) k/uL MPV Neutrophils % % Lymphocytes % % Monocytes % % Eosinophils % % Basophils % % Neutrophils # (1.3-7.7) k/uL Lymphocytes # (1.0-4.8) k/uL Monocytes # (0-1.0) k/uL Eosinophils # (0-0.7) k/uL Basophils # (0-0.2) k/uL Sodium 139 (137-145) mmol/L Potassium 4.4 (3.5-5.1) mmol/L Chloride 106 (98-107) mmol/L Carbon Dioxide 23 (22-30) mmol/L Anion Gap 10 mmol/L BUN 12 (7-17) mg/dL Creatinine 0.46 L (0.52-1.04) mg/dL Est GFR (CKD-EPI)AfAm >90 (>60 ml/min/1.73 sqM) Est GFR (CKD-EPI)NonAf >90 (>60 ml/min/1.73 sqM) Glucose 96 (74-99) mg/dL Calcium 9.3 (8.4-10.2) mg/dL Total Bilirubin 0.4 (0.2-1.3) mg/dL AST 25 (14-36) U/L ALT 23 (4-34) U/L Alkaline Phosphatase 74 (38-126) U/L Total Protein 7.1 (6.3-8.2) g/dL Albumin 4.6 (3.5-5.0) g/dL Lipase 92 (23-300) U/L Urine Color Urine Appearance (Clear) Urine pH (5.0-8.0) Ur Specific [place] (1.001-1.035) Urine Protein (Negative) Urine Glucose (UA) (Negative) Urine Ketones (Negative) Urine Blood (Negative) Urine Nitrite (Negative) Urine Bilirubin (Negative) Urine Urobilinogen (<2.0) mg/dL Ur Leukocyte Esterase (Negative) Urine RBC (0-5) /hpf Urine WBC (0-5) /hpf Ur Squamous Epith Cells (0-4) /hpf Amorphous Sediment (None) /hpf Urine Bacteria (None) /hpf Urine Mucus (None) /hpf Urine HCG, Qual (Not Detectd) Disposition Clinical Impression: Abdominal pain Disposition: HOME SELF-CARE Condition: Good Instructions (If sedation given, give patient instructions): Abdominal Pain (ED) Is patient prescribed a controlled substance at d/c from ED?: No Referrals: None,Stated [Primary Care Provider] - 1-2 days Time of Disposition: 14:23
--- NOTE | 2022-01-08 13:58 | XR ---
EXAMINATION TYPE: XR abdomen 1V DATE OF EXAM: 01/08/2022 1:44 PM INDICATION: Patient age:Female; 21 years old; Reason for study: abdominal pain COMPARISON: 12/09/2021 TECHNIQUE: One radiographic view of the abdomen was obtained. FINDINGS: The bowel gas pattern is nonspecific without dilated loops of small or large bowel. There i s no evidence for organomegaly or pneumoperitoneum. The osseous structures are intact. No abnormal calcifications are present. Fecal material and gas are demonstrated throughout the colon and rectum. Mild scoliosis changes of the spine. IMPRESSION: Nonspecific bowel gas pattern without radiographic evidence for acute process.
[2022-01-08 14:05] LABS: Basophils # (A) 0.1 k/uL (0-0.2); Basophils % (A) 1 %; Eosinophils # (A) 0.2 k/uL (0-0.7); Eosinophils % (A) 1 %; HCT 39.8 % (34.0-46.0); HGB 13.1 gm/dL (11.4-16.0); Lymphocytes # (A) 3.3 k/uL (1.0-4.8); Lymphocytes % (A) 26 %; MCH 27.3 pg (25.0-35.0); MCHC 32.8 g/dL (31.0-37.0); MCV 83.3 fL (80.0-100.0); Mean Platelet Volume 6.6; Monocytes # (A) 0.7 k/uL (0-1.0); Monocytes % (A) 6 %; Neutrophils # (A) 7.9 k/uL (1.3-7.7); Neutrophils % (A) 64 %; Platelet Count 398 k/uL (150-450); RBC 4.78 m/uL (3.80-5.40); RDW 13.2 % (11.5-15.5); WBC 12.4 k/uL (3.8-10.6)
[2022-01-08 14:13] LABS: ALT 23 U/L (4-34); AST 25 U/L (14-36); African American GFR (CKD) >90 (>60 ml/min/1.73 sqM); Albumin 4.6 g/dL (3.5-5.0); Alkaline Phosphatase 74 U/L (38-126); Anion Gap 10 mmol/L; Blood Urea Nitrogen 12 mg/dL (7-17); Calcium 9.3 mg/dL (8.4-10.2); Carbon Dioxide 23 mmol/L (22-30); Chloride 106 mmol/L (98-107); Glucose 96 mg/dL (74-99); Lipase 92 U/L (23-300); Non-African American GFR(CKD) >90 (>60 ml/min/1.73 sqM); Potassium 4.4 mmol/L (3.5-5.1); Sodium 139 mmol/L (137-145); Total Bilirubin 0.4 mg/dL (0.2-1.3); Total Protein 7.1 g/dL (6.3-8.2)
[2022-01-08 15:11] VITALS: BP 132/79; PULSE 100
== END 2022-01-08 14:39 | disposition home or self-care (01) ==
LOC: EC 11:30
DX: R10.9 Unspecified abdominal pain (principal); J45.909 Unspecified asthma, uncomplicated; F17.290 Nicotine dependence, other tobacco product, uncomplicated
CPT/HCPCS: 36415; 74018; 80053; 81001; 81025; 83690; 85025; 99284

== ENCOUNTER 2022-01-17 14:17 | Observation (INO) | payer OTHER ==
[2022-01-17] MEDS ORDERED: ONDANSETRON 4 MG/2 ML VIAL IVP STA (14:40)
[2022-01-17] MEDS ORDERED: diphenhydrAMINE 50 MG/ML 1 ML VIAL IVP STA (14:40)
[2022-01-17] MEDS ORDERED: SODIUM CHLORIDE 0.9% 1,000 ML IV STA ×2 (14:40→17:06)
[2022-01-17] MEDS ORDERED: FAMOTIDINE 20 MG/2 ML VIAL IV STA (14:41)
[2022-01-17] MEDS ORDERED: KETOROLAC 15 MG/ML 1 ML VIAL IVP STA (14:41)
--- NOTE | 2022-01-17 15:08 | ED ---
Abdominal Pain HPI - General Chief Complaint: Nausea/Vomiting/Diarrhea Stated Complaint: vomiting Time Seen by Provider: 01/17/22 14:33 Source: patient, RN notes reviewed Mode of arrival: ambulatory Limitations: no limitations - History of Present Illness Initial Comments: This is a 21-year-old female who presents to the emergency department for epigastric pain, nausea, and vomiting. States the symptoms started last night. This started with epigastric pain and has progressed to nausea and vomiting. She had 1 episode of diarrhea last night that has since resolved. Denies ever having symptoms like this in the past. Denies any fevers, chills, or sick contacts. Denies any fevers, chills, sore throat, cough, dyspnea, chest pain, palpit ations, diarrhea, back pain, or headaches. MD Complaint: abdominal pain Onset/Timin -: days(s) Location: epigastric Associated Symptoms: nausea, vomiting - Related Data Home Medications Medication Instructions Recorded Confirmed Cholecalciferol (Vitamin D3) 125 mcg PO DAILY 01/19/21 02/19/21 [Vitamin D3 (125 MCG = 5,000 IU)] Pnv No.95/Ferrous Fum/Folic AC 1 tab PO ONCE 01/19/21 02/19/21 [ Multivitamin Tablet] Previous Rx's Medication Instructions Recorded Ibuprofen [Motrin] 600 mg PO Q6H PRN #30 tab 02/22/21 oxyCODONE HCL [OxyIR] 5 mg PO Q4HR PRN #12 tab 02/22/21 Allergies Allergy/AdvReac Type Severity Reaction Status Date / Time No Known Allergies Allergy Verified 01/17/22 14:30 Review of Systems ROS Statement: Those systems with pertinent positive or pertinent negative responses have been documented in the HPI. ROS Other: All systems not noted in ROS Statement are negative. Past Medical History Past Medical History: Asthma Additional Past Medical History / Comment(s): Scoliosis History of Any Multi-Drug Resistant Organisms: None Reported Past Surgical History: Section Additional Past Surgical History / Comment(s): c section jan 2021 Past Anesthesia/Blood Transfusion Reactions: No Reported Reaction Past Psychological History: ADD/ADHD, Anxiety, Depression, Panic Disorder, PTSD Smoking Status: Vaper Past Alcohol Use History: None Reported Past Drug Use History: None Reported - Past Family History Mother Family Medical History: Osteoarthritis (OA) General Exam Limitations: no limitations General appearance: alert, in distress Head exam: Present: atraumatic, normocephalic, normal inspection Respiratory exam: Present: normal lung sounds bilaterally. Absent: respiratory distress, wheezes, rales, rhonchi, stridor Cardiovascular Exam: Present: regular rate, normal rhythm, normal heart sounds. Absent: systolic murmur, diastolic murmur, rubs, gallop, clicks GI/Abdominal exam: Present: soft, tenderness (epigastric), hyperactive bowel sounds Expanded GI/Abdominal exam: Present: Gutiérrez's sign Neurological exam: Present: alert, oriented X3, CN II-XII intact Psychiatric exam: Present: normal affect, normal mood Skin exam: Present: warm, dry, intact, normal color. Absent: rash Course Vital Signs 01/17/22 01/17/22 14:28 17:10 Temperature 98.5 F Pulse Rate 86 115 H Respiratory 16 18 Rate Blood Pressure 123/83 113/59 O2 Sat by Pulse 100 99 Oximetry Medical Decision Making - Medical Decision Making This is a 21-year-old female who presents to the emergency department for abdominal pain, nausea, and vomiting. Lab work reveals leukocytosis. Ultrasound of the gallbladder obtained revealing cholelithiasis, possible Gutiérrez's sign, and wall thickening. Radiologist suggestd a HIDA scan and correlation for acute cholecystitis. I spoke with ED attending, Dr. Rajan, who advised that this is most likely an acute cholecystitis. Patient started on IV Zosyn and maintenance fluids per Dr. Davenport's request. She'll be given clear liquids tonight and be kept NPO after midnight. This case was discussed in detail with the attending ED physician. Presentation, findings, and treatment plan discussed in detail as well. - Lab Data Result diagrams: 01/17/22 15:17 01/17/22 15:17 Lab Results 01/17/22 01/17/22 01/17/22 Range/Units 15:17 15:17 15:17 WBC 14.4 H (3.8-10.6) k/uL RBC 4.95 (3.80-5.40) m/uL Hgb 13.4 (11.4-16.0) gm/dL Hct 41.1 (34.0-46.0) % MCV 83.0 (80.0-100.0) fL MCH 27.0 (25.0-35.0) pg MCHC 32.6 (31.0-37.0) g/dL RDW 12.7 (11.5-15.5) % Plt Count 400 (150-450) k/uL MPV 6.8 Neutrophils % 90 % Lymphocytes % 7 % Monocytes % 2 % Eosinophils % 0 % Basophils % 0 % Neutrophils # 12.9 H (1.3-7.7) k/uL Lymphocytes # 1.1 (1.0-4.8) k/uL Monocytes # 0.3 (0-1.0) k/uL Eosinophils # 0.0 (0-0.7) k/uL Basophils # 0.0 (0-0.2) k/uL Sodium (137-145) mmol/L Potassium (3.5-5.1) mmol/L Chloride (98-107) mmol/L Carbon Dioxide (22-30) mmol/L Anion Gap mmol/L BUN (7-17) mg/dL Creatinine (0.52-1.04) mg/dL Est GFR (CKD-EPI)AfAm (>60 ml/min/1.73 sqM) Est GFR (CKD-EPI)NonAf (>60 ml/min/1.73 sqM) Glucose (74-99) mg/dL Calcium (8.4-10.2) mg/dL Total Bilirubin (0.2-1.3) mg/dL AST (14-36) U/L ALT (4-34) U/L Alkaline Phosphatase (38-126) U/L Total Protein (6.3-8.2) g/dL Albumin (3.5-5.0) g/dL Amylase (30-110) U/L Lipase (23-300) U/L Urine Color Yellow Urine Appearance Turbid H (Clear) Urine pH 5.5 (5.0-8.0) Ur Specific [place] 1.029 (1.001-1.035) Urine Protein 1+ H (Negative) Urine Glucose (UA) Negative (Negative) Urine Ketones 2+ H (Negative) Urine Blood Negative (Negative) Urine Nitrite Negative (Negative) Urine Bilirubin Negative (Negative) Urine Urobilinogen <2.0 (<2.0) mg/dL Ur Leukocyte Esterase Trace H (Negative) Ur Squamous Epith Cells 3 (0-4) /hpf Amorphous Sediment Few H (None) /hpf Urine Mucus Few H (None) /hpf Urine HCG, Qual Not Detected (Not Detectd) 01/17/22 Range/Units 15:17 WBC (3.8-10.6) k/uL RBC (3.80-5.40) m/uL Hgb (11.4-16.0) gm/dL Hct (34.0-46.0) % MCV (80.0-100.0) fL MCH (25.0-35.0) pg MCHC (31.0-37.0) g/dL RDW (11.5-15.5) % Plt Count (150-450) k/uL MPV Neutrophils % % Lymphocytes % % Monocytes % % Eosinophils % % Basophils % % Neutrophils # (1.3-7.7) k/uL Lymphocytes # (1.0-4.8) k/uL Monocytes # (0-1.0) k/uL Eosinophils # (0-0.7) k/uL Basophils # (0-0.2) k/uL Sodium 141 (137-145) mmol/L Potassium 4.0 (3.5-5.1) mmol/L Chloride 102 (98-107) mmol/L Carbon Dioxide 21 L (22-30) mmol/L Anion Gap 18 mmol/L BUN 15 (7-17) mg/dL Creatinine 0.53 (0.52-1.04) mg/dL Est GFR (CKD-EPI)AfAm >90 (>60 ml/min/1.73 sqM) Est GFR (CKD-EPI)NonAf >90 (>60 ml/min/1.73 sqM) Glucose 114 H (74-99) mg/dL Calcium 9.8 (8.4-10.2) mg/dL Total Bilirubin 0.6 (0.2-1.3) mg/dL AST 24 (14-36) U/L ALT 21 (4-34) U/L Alkaline Phosphatase 89 (38-126) U/L Total Protein 8.0 (6.3-8.2) g/dL Albumin 5.2 H (3.5-5.0) g/dL Amylase 59 (30-110) U/L Lipase 73 (23-300) U/L Urine Color Urine Appearance (Clear) Urine pH (5.0-8.0) Ur Specific [place] (1.001-1.035) Urine Protein (Negative) Urine Glucose (UA) (Negative) Urine Ketones (Negative) Urine Blood (Negative) Urine Nitrite (Negative) Urine Bilirubin (Negative) Urine Urobilinogen (<2.0) mg/dL Ur Leukocyte Esterase (Negative) Ur Squamous Epith Cells (0-4) /hpf Amorphous Sediment (None) /hpf Urine Mucus (None) /hpf Urine HCG, Qual (Not Detectd) - Radiology Data Radiology results: report reviewed, image reviewed Disposition Clinical Impression: Acute cholecystitis Disposition: ADMITTED IP TO THIS HOSP Referrals: Denis Marsh DO [Primary Care Provider] - 1-2 days
[2022-01-17 15:33] LABS: ALT 21 U/L (4-34); AST 24 U/L (14-36); African American GFR (CKD) >90 (>60 ml/min/1.73 sqM); Albumin 5.2 g/dL (3.5-5.0); Alkaline Phosphatase 89 U/L (38-126); Amylase 59 U/L (30-110); Anion Gap 18 mmol/L; Blood Urea Nitrogen 15 mg/dL (7-17); Calcium 9.8 mg/dL (8.4-10.2); Carbon Dioxide 21 mmol/L (22-30); Chloride 102 mmol/L (98-107); Glucose 114 mg/dL (74-99); Lipase 73 U/L (23-300); Non-African American GFR(CKD) >90 (>60 ml/min/1.73 sqM); Sodium 141 mmol/L (137-145); Total Bilirubin 0.6 mg/dL (0.2-1.3)
[2022-01-17 16:00] LABS: Amorphous Sediment,Urine Few /hpf; Appearance,Urine Turbid (Clear); Bilirubin,Urine Negative (Negative); Blood,Urine Negative (Negative); Color,Urine Yellow; Glucose,Urine (UA) Negative (Negative); Leukocyte Esterase,Urine Trace (Negative); Mucus,Urine Few /hpf; Nitrite,Urine Negative (Negative); PH, Urine 5.5 (5.0-8.0); Protein,Urine 1+ (Negative); Specific Gravity,Urine 1.029 (1.001-1.035); Squamous Epithelial Cell,Urine 3 /hpf (0-4); Urobilinogen,Urine <2.0 mg/dL (<2.0)
[2022-01-17 16:08] LABS: Basophils % (A) 0 %; Eosinophils % (A) 0 %; HCT 41.1 % (34.0-46.0); HGB 13.4 gm/dL (11.4-16.0); Lymphocytes # (A) 1.1 k/uL (1.0-4.8); Lymphocytes % (A) 7 %; MCHC 32.6 g/dL (31.0-37.0); Mean Platelet Volume 6.8; Monocytes # (A) 0.3 k/uL (0-1.0); Monocytes % (A) 2 %; Neutrophils # (A) 12.9 k/uL (1.3-7.7); Neutrophils % (A) 90 %; Platelet Count 400 k/uL (150-450); RBC 4.95 m/uL (3.80-5.40); RDW 12.7 % (11.5-15.5); WBC 14.4 k/uL (3.8-10.6)
[2022-01-17 16:09] LABS: Ketones,Urine 2+ (Negative)
--- NOTE | 2022-01-17 16:51 | US ---
EXAMINATION TYPE: US gallbladder DATE OF EXAM: 01/17/2022 COMPARISON: NONE CLINICAL HISTORY: Epigastric pain. Epigastric pain and vomiting. TECHNIQUE: Multiple sonographic images of the right upper quadrant are obtained. 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 Pancreas: No abnormalities seen. Liver: Appears wnl Gallbladder: Wall appears thickened but is likely secondary to contraction. Multiple hyperechoic foci with posterior shadowing seen within. No pericholecystic fluid Evidence for sonographic Gutiérrez's sign: Patient did feel pain while scanning over the gallbladder. CBD: Appears wnl Right Kidney: No hydronephrosis or masses seen IMPRESSION: Cholelithiasis with increased pain over the gallbladder on sonography. Correlate with HIDA for acute cholecystitis. No evidence of significant wall thickening or pericholecystic fluid.
[2022-01-17] MEDS ORDERED: PIPERACILLIN-TAZOBACTAM 3.375 GM in SODIUM CHLORIDE 0.9% 100 ML IVPB SCH (17:15)
[2022-01-17] MEDS ORDERED: HYDROmorphone 0.5 MG/0.5 ML SYRINGE IVP PRN (17:15)
[2022-01-17] MEDS ORDERED: HYDROmorphone 1 MG/ML 1 ML SYRINGE IVP PRN (17:15)
[2022-01-17] MEDS ORDERED: NALOXONE 0.4 MG/ML 1 ML VIAL IV PRN (17:15)
[2022-01-18] MEDS: PIPERACILLIN-TAZOBACTAM 3.375 GM in SODIUM CHLORIDE 0.9% 100 ML IVPB SCH ×3 (02:41→18:36)
[2022-01-18] MEDS ORDERED: INDOCYANINE GREEN 25 MG VIAL IV STA (09:35)
[2022-01-18 10:22] LABS: Basophils % (A) 1 %; Eosinophils % (A) 1 %; HCT 38.2 % (34.0-46.0); HGB 12.3 gm/dL (11.4-16.0); Lymphocytes # (A) 2.5 k/uL (1.0-4.8); Lymphocytes % (A) 33 %; MCH 27.2 pg (25.0-35.0); MCHC 32.2 g/dL (31.0-37.0); MCV 84.6 fL (80.0-100.0); Mean Platelet Volume 6.8; Monocytes # (A) 0.4 k/uL (0-1.0); Monocytes % (A) 6 %; Neutrophils # (A) 4.4 k/uL (1.3-7.7); Neutrophils % (A) 58 %; Platelet Count 352 k/uL (150-450); RBC 4.52 m/uL (3.80-5.40); RDW 12.9 % (11.5-15.5); WBC 7.6 k/uL (3.8-10.6)
[2022-01-18 10:48] LABS: AST 19 U/L (14-36); African American GFR (CKD) >90 (>60 ml/min/1.73 sqM); Albumin 4.2 g/dL (3.5-5.0); Albumin/Globulin Ratio 1.9; Alkaline Phosphatase 70 U/L (38-126); Blood Urea Nitrogen 12 mg/dL (7-17); Carbon Dioxide 25 mmol/L (22-30); Chloride 107 mmol/L (98-107); Globulin 2.2 g/dL; Glucose 88 mg/dL (74-99); Non-African American GFR(CKD) >90 (>60 ml/min/1.73 sqM); Total Bilirubin 0.9 mg/dL (0.2-1.3); Total Protein 6.4 g/dL (6.3-8.2)
[2022-01-18 10:53] LABS: ALT 16 U/L (4-34); Anion Gap 11 mmol/L; Calcium 9.2 mg/dL (8.4-10.2); Sodium 143 mmol/L (137-145)
--- NOTE | 2022-01-18 11:27 | P.GSHP ---
History of Present Illness H&P Date: 01/18/22 CHIEF COMPLAINT: Cholecystitis HISTORY OF PRESENT ILLNESS: The patient is a 21-year-old female who presents acute onset right upper quadrant abdominal pain radiating to her back started. She reports pre-existing history of scoliosis. Additionally, she reports her symptoms have been ongoing for 1 week. She developed intractable nausea and vomiting a day ago. She went to her urgent care center after prior visit to the emergency room. She presents with leukocytosis. Diagnostic studies demo nstrates acute cholecystitis. As result, patient admitted for acute cholecystitis. PAST MEDICAL HISTORY: Please see list PAST SURGICAL HISTORY: Please see list MEDICATIONS: Please see list ALLERGIES: Please see list SOCIAL HISTORY: Please see list FAMILY HISTORY: Please see list REVIEW OF ORGAN SYSTEMS: CONSTITUTIONAL: No reports of fevers or chills. HEENT: Denies any troubles with the vision or hearing. ENDOCRINE: No reports of hypothyroidism. No diabetes. RESPIRATORY: No recent pneumonias. CARDIOVASCULAR: Denies chest pain or palpitations GI: No blood in stools or constipation. MUSCULOSKELETAL: Has occasional joint pain including back pain. NEURO: No seizure disorders or headaches. No recent stroke. PSYCH: No depression or suicidal ideation. GENITOURINARY: No active blood in urine. No urinary hesitancy. HEMATOLOGIC: No personal or family history of DVTs or pulmonary emboli. SKIN: No skin cancer. PHYSICAL EXAM: VITAL SIGNS: Afebrile vital signs stable GENERAL: Well-developed pleasant in no acute distress. HEENT: No scleral icterus. Extraocular movements grossly intact. Moist buccal mucosa. NECK: Supple without lymphadenopathy. CHEST: Unlabored respirations. Equal bilateral excursions. CARDIOVASCULAR: Regular rate regular rhythm rhythm. Distal 2+ pulses. ABDOMEN: Soft, nondistended. Tender along the epigastrium and right upper quadrant. MUSCULOSKELETAL: No clubbing, cyanosis, or edema. NEURO: Cranial nerves II to XII within normal limits. No focal or lateralizing signs. PSYCH: Alert and oriented to person, place and time. SKIN: Well-perfused good skin turgor. LABS: WBC elevated at 14,000 STUDIES: Ultrasound of the gallbladder independently reviewed with thickened gallbladder wall and gallstones consistent with acute cholecystitis. This is my independent interpretation. REPORT: Radiology report reviewed consistent with acute cholecystitis per ultrasound ASSESSMENT: 1. Acute cholecystitis with gallstones. PLAN: 1. Will need a robotic cholecystectomy possible open. Benefits and risks were described. 2. Heparin for DVT prophylaxis 5000 units. 3. Antibiotic prophylaxis. Past Medical History Past Medical History: Asthma Additional Past Medical History / Comment(s): Scoliosis History of Any Multi-Drug Resistant Organisms: None Reported Past Surgical History: Section Additional Past Surgical History / Comment(s): c section jan 2021 Past Anesthesia/Blood Transfusion Reactions: No Reported Reaction Past Psychological History: ADD/ADHD, Anxiety, Depression, Panic Disorder, PTSD Smoking Status: Vaper Past Alcohol Use History: None Reported Past Drug Use History: None Reported - Past Family History Mother Family Medical History: Osteoarthritis (OA) Medications and Allergies Home Medications Medication Instructions Recorded Confirmed Type Pnv No.95/Ferrous Fum/Folic AC 1 tab PO DAILY 01/19/21 01/17/22 History [ Multivitamin Tablet] Albuterol Sulfate [Proair Hfa] 2 puff INHALATION RT-Q6H PRN 01/17/22 01/17/22 History Cetirizine HCl 10 mg PO HS 01/17/22 01/17/22 History Cholecalciferol [Vitamin D3 (25 50 mcg PO DAILY 01/17/22 01/17/22 History Mcg = 1000 Iu)] Magnesium Oxide [Mag-Ox] 400 mg PO DAILY 01/17/22 01/17/22 History Methylphenidate HCl [Concerta] 72 mg PO DAILY 01/17/22 01/17/22 History Montelukast [Singulair] 10 mg PO DAILY 01/17/22 01/17/22 History Sertraline [Zoloft] 25 mg PO DAILY 01/17/22 01/17/22 History medroxyPROGESTERone [Depo-Provera] 150 mg IM Q84D 01/17/22 01/17/22 History Allergies Allergy/AdvReac Type Severity Reaction Status Date / Time No Known Allergies Allergy Verified 01/17/22 18:04 Surgical - Exam Vital Signs Temp Pulse Resp BP Pulse Ox 98.5 F 86 16 123/83 100 01/17/22 14:28 01/17/22 14:28 01/17/22 14:28 01/17/22 14:28 01/17/22 14:28 Results - Labs 01/18/22 09:59 01/18/22 09:59 Abnormal Lab Results - Last 24 Hours (Table) 01/17/22 01/17/22 01/17/22 Range/Units 15:17 15:17 15:17 WBC 14.4 H (3.8-10.6) k/uL Neutrophils # 12.9 H (1.3-7.7) k/uL Carbon Dioxide 21 L (22-30) mmol/L Glucose 114 H (74-99) mg/dL Albumin 5.2 H (3.5-5.0) g/dL Urine Appearance Turbid H (Clear) Urine Protein 1+ H (Negative) Urine Ketones 2+ H (Negative) Ur Leukocyte Esterase Trace H (Negative) Amorphous Sediment Few H (None) /hpf Urine Mucus Few H (None) /hpf Diabetes panel 01/17/22 Range/Units 15:17 Sodium 141 (137-145) mmol/L Potassium 4.0 (3.5-5.1) mmol/L Chloride 102 (98-107) mmol/L Carbon Dioxide 21 L (22-30) mmol/L BUN 15 (7-17) mg/dL Creatinine 0.53 (0.52-1.04) mg/dL Glucose 114 H (74-99) mg/dL Calcium 9.8 (8.4-10.2) mg/dL AST 24 (14-36) U/L ALT 21 (4-34) U/L Alkaline Phosphatase 89 (38-126) U/L Total Protein 8.0 (6.3-8.2) g/dL Albumin 5.2 H (3.5-5.0) g/dL Calcium panel 01/17/22 Range/Units 15:17 Calcium 9.8 (8.4-10.2) mg/dL Albumin 5.2 H (3.5-5.0) g/dL Pituitary panel 01/17/22 Range/Units 15:17 Sodium 141 (137-145) mmol/L Potassium 4.0 (3.5-5.1) mmol/L Chloride 102 (98-107) mmol/L Carbon Dioxide 21 L (22-30) mmol/L BUN 15 (7-17) mg/dL Creatinine 0.53 (0.52-1.04) mg/dL Glucose 114 H (74-99) mg/dL Calcium 9.8 (8.4-10.2) mg/dL Adrenal panel 01/17/22 Range/Units 15:17 Sodium 141 (137-145) mmol/L Potassium 4.0 (3.5-5.1) mmol/L Chloride 102 (98-107) mmol/L Carbon Dioxide 21 L (22-30) mmol/L BUN 15 (7-17) mg/dL Creatinine 0.53 (0.52-1.04) mg/dL Glucose 114 H (74-99) mg/dL Calcium 9.8 (8.4-10.2) mg/dL Total Bilirubin 0.6 (0.2-1.3) mg/dL AST 24 (14-36) U/L ALT 21 (4-34) U/L Alkaline Phosphatase 89 (38-126) U/L Total Protein 8.0 (6.3-8.2) g/dL Albumin 5.2 H (3.5-5.0) g/dL
[2022-01-18] MEDS ORDERED: IV FLUID CONTINUATION 800 ML IV ONE (15:04)
[2022-01-18] MEDS ORDERED: HEPARIN SODIUM,PORCINE/PF 5,000 UNIT/0.5 ML SYRINGE SQ ONE (15:11)
[2022-01-18] MEDS ORDERED: ONDANSETRON 4 MG/2 ML VIAL IVP ONE (15:14)
[2022-01-18] MEDS ORDERED: DEXAMETHASONE SOD PHOSPHATE 4 MG/ML 1 ML VIAL IVP ONE (15:15)
[2022-01-18] MEDS ORDERED: BUPIVACAIN-EPI 0.25%-1:200,000 30 ML VIAL SQ ONE ×2 (15:55→16:20)
[2022-01-18] MEDS ORDERED: fentaNYL (PF) 50 MCG/ML 2 ML AMP ONE (15:56)
[2022-01-18] MEDS ORDERED: ROCURONIUM 10 MG/ML (5 ML VIAL) IV ONE (15:56)
[2022-01-18] MEDS ORDERED: SUCCINYLCHOLINE CHLORIDE 200 MG/10 ML VIAL IV ONE (15:56)
[2022-01-18] MEDS ORDERED: NEOSTIGMINE 1 MG/ML 10 ML VIAL ONE (15:56)
[2022-01-18] MEDS ORDERED: LIDOCAINE 2% INJ 20 MG/ML (2 ML VIAL) ONE (15:56)
[2022-01-18] MEDS ORDERED: PROPOFOL 10 MG/ML 20 ML VIAL IV ONE (15:56)
[2022-01-18] MEDS ORDERED: MIDAZOLAM 2 MG/2 ML VIAL ONE (15:56)
[2022-01-18] MEDS ORDERED: INDOCYANINE GREEN 25 MG VIAL IV ONE (15:56)
[2022-01-18] MEDS ORDERED: GLYCOPYRROLATE 0.2 MG/ML 2 ML VIAL ONE (15:56)
[2022-01-18] MEDS ORDERED: LACTATED RINGERS 1,000 ML IV ONE (16:46)
[2022-01-18] MEDS ORDERED: HYDROmorphone 0.5 MG/0.5 ML SYRINGE IVP ONE (17:16)
[2022-01-18] MEDS ORDERED: KETOROLAC 15 MG/ML 1 ML VIAL IVP ONE (17:17)
--- NOTE | 2022-01-18 17:24 | P.OP ---
Date of Procedure: 01/18/22 Description of Procedure: SURGEON: SUZANNE FISHER MD PREOPERATIVE DIAGNOSES: 1. Acute cholecystitis due to cystic duct obstruction and gallstones 2. Intractable nausea and vomiting 3. Dehydration 4. Right upper quadrant abdominal pain POSTOPERATIVE DIAGNOSES: 1. Acute cholecystitis due to cystic duct obstruction and gallstones 2. Intractable nausea and vomiting 3. Dehydration 4. Right upper quadrant abdominal pain OPERATION: Robotic-assisted da Brittanie Xi laparoscopic cholecystectomy, multiport with FIREFLY ESTIMATED BLOOD LOSS: 5 mL. SPECIMENS REMOVED: Gallbladder. COMPLICATIONS: None. OPERATIVE FINDINGS: 1. Multiple gallstones with thickened gallbladder wall and acute cholecystitis INDICATIONS: The patient is a 21-year-old female who presents with symptomatic gallstones and acute cholecystitis. Robotic assisted laparoscopic approach was described. Benefits and risks of the procedure including but not limited to bleeding, infection, injury to the biliary tree was described. Informed consent was obtained. DESCRIPTION OF PROCEDURE: Patient was brought to the operating room, placed in supine position. After general induction, the abdomen had been prepped and draped in standard sterile fashion. The robotic da Brittanie XI system was primed. After a timeout protocol was performed, the patient had been prepped and draped in standard sterile fashion. The patient was injected with indocyanine green. A 5 mm 0 degrees laparoscopic trocar entry was performed along the left upper quadrant. The abdomen insufflated to 15 mmHg pressure which was tolerated well. Diagnostic laparoscopy demonstrated no injury to bowel viscera or mesentery. The liver surface was unremarkable. Next, two 8 mm robotic ports were placed along the right upper abdomen. The camera 8-mm port was maintained along the epigastrium. Another 8 mm port was placed along the left upper abdominal wall after exchanging the 5 mm port. Please note that the ports were placed at least 10 to 15 cm away from the target anatomy of the gallbladder. The robot was docked along the left lateral abdomen. The patient was repositioned in reverse Trendelenburg position. Using a grasper for arm 3, a grasper for arm 4, including hook cautery for arm 1, the robotic system was docked and primed as described. Instruments were interchanged by the habilitation assistant including hook cautery, Bovie cautery and clip appliers. I had sat at the console. Next attention was brought to the infundibulum and cystic structures. The infundibulum and cystic duct were dissected free from surrounding tissues. The cystic duct was isolated. FIREFLY was used to identify the cystic artery and cystic structures. A critical view of safety was obtained. Large PLASTIC clips were used throughout the entire case. Using a clip hydraulic operator, 2 clips were placed at the junction of the infundibulum and cystic duct. The cystic duct was divided between clips. Next, the cystic artery was similarly clipped and cauterized. Electro-Bovie cautery was used to remove the gallbladder from the hepatic fossa. Hemostasis was checked and found to be adequate. The robot was undocked. I re-scrubbed into the case. Using a 10 mm Endo Catch bag via the left upper quadrant incision, the specimen was removed from the abdominal cavity. All pneumoperitoneum instruments were evacuated from the abdominal cavity. The incisions were reapproximated using 4-0 Monocryl in an interrupted subcuticular fashion. Fascial defects were less than 8 mm in size. Please note along the trocar sites, local anesthetic was placed as a field block prior to insertion of all instruments. Liquid glue was applied to the skin. At the end of the procedure needle, sponge, and instrument count had been verified correct by the surgical brace maker. The patient was transferred to postanesthesia care unit in stable condition. Intraoperative films were shared with the patient's family.
--- NOTE | 2022-01-18 17:31 | P.DS ---
Providers Date of admission: 01/17/22 17:34 Expected date of discharge: 01/18/22 Attending physician: Nakia Davenport Primary care physician: Denis Maximo [facility] Course: POSTOPERATIVE DIAGNOSES: 1. Acute cholecystitis due to cystic duct obstruction and gallstones 2. Intractable nausea and vomiting 3. Dehydration 4. Right upper quadrant abdominal pain 5. Scoliosis 6. Depressive disorder HISTORY COURSE: The patient is a 21-year-old female who presented with acute cholecystitis confirmed on ultrasound including clinical findings. She underwent cholecystectomy. Postoperatively, pain was controlled, she was voiding and tolerating diet. Discharge instructions reviewed where patient was stable for discharge. Procedures: POSTOPERATIVE DIAGNOSES: 1. Acute cholecystitis due to cystic duct obstruction and gallstones 2. Intractable nausea and vomiting 3. Dehydration 4. Right upper quadrant abdominal pain OPERATION: Robotic-assisted da Brittanie Xi laparoscopic cholecystectomy, multiport with FIREFLY ESTIMATED BLOOD LOSS: 5 mL. SPECIMENS REMOVED: Gallbladder. COMPLICATIONS: None. OPERATIVE FINDINGS: 1. Multiple gallstones with thickened gallbladder wall and acute cholecystitis Patient Condition at Discharge: Stable Plan - Discharge Summary Discharge Rx Participant: No New Discharge Prescriptions: New Simethicone [Gas-X] 125 mg PO AC-TID PRN #20 capsule PRN Reason: Pain Ibuprofen [Motrin] 600 mg PO Q8HR PRN #30 tab PRN Reason: Pain Acetaminophen Tab [Tylenol Tab] 1,000 mg PO Q6HR PRN #30 tablet PRN Reason: Pain Continue Pnv No.95/Ferrous Fum/Folic AC [ Multivitamin Tablet] 1 tab PO DAILY Cholecalciferol [Vitamin D3 (25 Mcg = 1000 Iu)] 50 mcg PO DAILY Albuterol Sulfate [Proair Hfa] 2 puff INHALATION RT-Q6H PRN PRN Reason: Shortness Of Breath Sertraline [Zoloft] 25 mg PO DAILY medroxyPROGESTERone [Depo-Provera] 150 mg IM Q84D Methylphenidate HCl [Concerta] 72 mg PO DAILY Magnesium Oxide [Mag-Ox] 400 mg PO DAILY Cetirizine HCl 10 mg PO HS Montelukast [Singulair] 10 mg PO DAILY Discharge Medication List Pnv No.95/Ferrous Fum/Folic AC [ Multivitamin Tablet] 1 tab PO DAILY 01/19/21 [History] Albuterol Sulfate [Proair Hfa] 2 puff INHALATION RT-Q6H PRN 01/17/22 [History] Cetirizine HCl 10 mg PO HS 01/17/22 [History] Cholecalciferol [Vitamin D3 (25 Mcg = 1000 Iu)] 50 mcg PO DAILY 01/17/22 [History] Magnesium Oxide [Mag-Ox] 400 mg PO DAILY 01/17/22 [History] Methylphenidate HCl [Concerta] 72 mg PO DAILY 01/17/22 [History] Montelukast [Singulair] 10 mg PO DAILY 01/17/22 [History] Sertraline [Zoloft] 25 mg PO DAILY 01/17/22 [History] medroxyPROGESTERone [Depo-Provera] 150 mg IM Q84D 01/17/22 [History] Acetaminophen Tab [Tylenol Tab] 1,000 mg PO Q6HR PRN #30 tablet 01/18/22 [Rx] Ibuprofen [Motrin] 600 mg PO Q8HR PRN #30 tab 01/18/22 [Rx] Simethicone [Gas-X] 125 mg PO AC-TID PRN #20 capsule 01/18/22 [Rx] Follow up Appointment(s)/Referral(s): Denis Marsh DO [Primary Care Provider] - 1-2 days Nakia Davenport MD [STAFF PHYSICIAN] - 01/23/22 (TELEHEALTH) Patient Instructions/Handouts: *Surgery [facility] - Managing Your Pain After Surgery Without Opioids, Low Fat Diet (DC), Laparoscopic Cholecystectomy (DC) Activity/Diet/Wound Care/Special Instructions: Recommend low-fat diet for the next 2 days. No lifting over 10 pounds in 2 weeks until Feb 01. May shower. No bath tub soaks for two weeks until Feb 01. Use Tylenol, simethicone and ibuprofen or Aleve scheduled for the next 24-48 hours for best pain relief. Use ice along incisions for today to prevent swelling. Discharge Disposition: HOME SELF-CARE
[2022-01-18] MEDS: ACETAMINOPHEN TAB 325 MG TAB PO PRN (21:03)
[2022-01-18] MEDS: ONDANSETRON 4 MG/2 ML VIAL IVP PRN (22:24)
[2022-01-18] MEDS: KETOROLAC 15 MG/ML 1 ML VIAL IVP SCH (22:59)
[2022-01-19] MEDS: PIPERACILLIN-TAZOBACTAM 3.375 GM in SODIUM CHLORIDE 0.9% 100 ML IVPB SCH ×2 (02:28→12:34)
[2022-01-19] MEDS: ACETAMINOPHEN TAB 325 MG TAB PO PRN (02:44)
[2022-01-19] MEDS: KETOROLAC 15 MG/ML 1 ML VIAL IVP SCH (05:46)
[2022-01-19] MEDS: ONDANSETRON 4 MG/2 ML VIAL IVP PRN (05:48)
[2022-01-19] MEDS ORDERED: HEPARIN SODIUM,PORCINE/PF 5,000 UNIT/0.5 ML SYRINGE SQ SCH (09:00)
[2022-01-19 09:30] VITALS: BP 113/76; PULSE 108; RESP 18; TEMP 98.4
--- NOTE | 2022-01-19 10:48 | P.PN ---
Progress Note - Text Progress Note Date: 01/19/22 01/19/2022 Patient is status post robotic-assisted laparoscopic cholecystectomy postoperative day #1. Patient remained in the hospital last night due to vomiting after surgery. This has now resolved. She is tolerating diet. Her pain is controlled. She has been up and ambulating. Afebrile. She is stable for discharge. Please refer to the discharge summary dictated on 01/18/2022 for further details. Physician Electronic Pagination System Operator note has been reviewed by physician. Signing provider agrees with the documented findings, assessment, and plan of care. Please see additional documentation CHIEF COMPLAINT: Acute cholecystitis HISTORY OF PRESENT ILLNESS: The patient is a 21-year-old female status post acute cholecystitis, 01/18/2022. Patient stayed overnight due to intractable nausea and vomiting. This morning, nausea has improved. Abdominal binder present. Pain control. She is tolerating diet. She had a bowel movement. ROS: No new chest pain. No productive sputum PHYSICAL EXAM: VITAL SIGNS: Reviewed CONSTITUTIONAL: Well developed and in no acute distress. EYES: Conjuctivae without sclera icterus. Extraocular movements grossly intact. HEAD, EARS, NOSE, THROAT: Moist buccal mucosa. Head is atraumatic, normocephalic. Hears conversational speech. No nasal drainage. RESPIRATORY: Non-labored respirations and equal bilateral excursions. CARDIOVASCULAR: Palpable 2+ radial pulses. ABDOMEN: Abdominal binder present. Incisions clean dry and intact. MUSCULOSKELETAL: No gross deformity of the lower extremities noted. No clubbing. No cyanosis. SKIN: Good skin turgor. Well perfused. NEUROLOGIC: Cranial nerves II through XII grossly intact. No focal or lateralizing signs. PSYCH: Appropriate affect. Alert and oriented to person, place and time. CLINICAL LABS: Reviewed. LFTs and white blood cell count improved after admission. ASSESSMENT: 1. Acute cholecystitis PLAN: 1. Overall, clinically improved. Stable for discharge. 2. Scopolamine patch prescribed
[2022-01-19] MEDS ORDERED: SCOPOLAMINE 1 MG/72 HR PATCH TRANSDERM SCH (11:00)
== END 2022-01-19 11:46 | disposition home or self-care (01) ==
LOC: EC 14:17 → 6NMEDSUR 17:34
PROVIDERS: ADMIT Surgery Plastic and Reconstructive Surgery; ATTEND Surgery Plastic and Reconstructive Surgery
DX: K80.13 Calculus of gallbladder with acute and chronic cholecystitis with obstruction (principal); E86.0 Dehydration; J45.909 Unspecified asthma, uncomplicated; M41.9 Scoliosis, unspecified; F32.A Depression, unspecified; F41.0 Panic disorder [episodic paroxysmal anxiety]; F43.10 Post-traumatic stress disorder, unspecified; F90.9 Attention-deficit hyperactivity disorder, unspecified type; F17.290 Nicotine dependence, other tobacco product, uncomplicated; Z82.61 Family history of arthritis; Z32.02 Encounter for pregnancy test, result negative; Z79.899 Other long term (current) drug therapy
CPT/HCPCS: 47562; S2900; 36415; 76705; 80053; 81001; 81025; 82150; 83690; 85025; 88304; 96361; 96365; 96366; 96375; 96376; 99285

== ENCOUNTER 2022-05-20 02:43 | Emergency (ER) | payer OTHER ==
[2022-05-20 02:54] VITALS: TEMP 98.8
[2022-05-20] MEDS ORDERED: SODIUM CHLORIDE 0.9% 500 ML 500 ML IV STA (03:23)
--- NOTE | 2022-05-20 03:56 | ED ---
Neck Injury/Pain HPI - General Chief Complaint: Neck Pain/Injury Stated Complaint: Involuntay Spasm Time Seen by Provider: 05/20/22 02:58 Mode of arrival: ambulatory Limitations: no limitations - History of Present Illness Initial Comments: This patient is a 21-year-old woman who presents to have evaluation of what she is concerned may be Tourette's type movements. The patient indicates that she started having repeated spasms to the right side of the neck, causing her to tur n her head towards the left. She states that there is also some aching now in the muscles of the right side of the neck as this is been going on for some time tonight. She did not have any antecedent injury. She has not started any new medications. The patient does state that she was under some stress tonight. No previous history of abnormal movement disorder. No history of seizures. MD Complaint: neck pain -: hour(s) Place: home Radiation: right lateral Severity: moderate Quality: aching Consistency: intermittent Improves With: none Worsens With: none Context: turning/bending Associated Symptoms: other Treatments Prior to Arrival: none - Related Data Home Medications Medication Instructions Recorded Confirmed Pnv No.95/Ferrous Fum/Folic AC 1 tab PO DAILY 01/19/21 01/17/22 [ Multivitamin Tablet] Albuterol Sulfate [Proair Hfa] 2 puff INHALATION RT-Q6H PRN 01/17/22 01/17/22 Cetirizine HCl 10 mg PO HS 01/17/22 01/17/22 Cholecalciferol [Vitamin D3 (25 50 mcg PO DAILY 01/17/22 01/17/22 Mcg = 1000 Iu)] Magnesium Oxide [Mag-Ox] 400 mg PO DAILY 01/17/22 01/17/22 Methylphenidate HCl [Concerta] 72 mg PO DAILY 01/17/22 01/17/22 Montelukast [Singulair] 10 mg PO DAILY 01/17/22 01/17/22 Sertraline [Zoloft] 25 mg PO DAILY 01/17/22 01/17/22 medroxyPROGESTERone [Depo-Provera] 150 mg IM Q84D 01/17/22 01/17/22 Previous Rx's Medication Instructions Recorded Acetaminophen Tab [Tylenol Tab] 1,000 mg PO Q6HR PRN #30 tablet 01/18/22 Ibuprofen [Motrin] 600 mg PO Q8HR PRN #30 tab 01/18/22 Simethicone [Gas-X] 125 mg PO AC-TID PRN #20 capsule 01/18/22 Ondansetron Odt [Zofran Odt] 4 mg PO Q8HR PRN #9 tab 01/19/22 Allergies Allergy/AdvReac Type Severity Reaction Status Date / Time No Known Allergies Allergy Verified 01/17/22 18:04 Review of Systems ROS Statement: Those systems with pertinent positive or pertinent negative responses have been documented in the HPI. ROS Other: All systems not noted in ROS Statement are negative. Constitutional: Denies: fever, chills Eyes: Denies: vision change ENT: Denies: ear pain Respiratory: Denies: cough, dyspnea Cardiovascular: Denies: chest pain, syncope Gastrointestinal: Denies: nausea, vomiting Genitourinary: Denies: dysuria, abnormal menses Musculoskeletal: Reports: myalgia (Right-sided cervical muscles). Denies: back pain Neurological: Denies: headache, weakness, numbness, confusion Past Medical History Past Medical History: Asthma Additional Past Medical History / Comment(s): Scoliosis, tendonitis in L hand History of Any Multi-Drug Resistant Organisms: None Reported Past Surgical History: Section Additional Past Surgical History / Comment(s): c section jan 2021 Past Anesthesia/Blood Transfusion Reactions: No Reported Reaction Past Psychological History: ADD/ADHD, Anxiety, Depression, Panic Disorder, PTSD Smoking Status: Vaper Past Alcohol Use History: None Reported Past Drug Use History: None Reported - Past Family History Mother Family Medical History: Osteoarthritis (OA) General Exam Limitations: no limitations General appearance: alert, in no apparent distress Head exam: Present: atraumatic, normocephalic Eye exam: Present: normal appearance. Absent: scleral icterus, conjunctival injection ENT exam: Present: normal oropharynx Neck exam: Present: normal inspection, tenderness (Right sided cervical muscles), full ROM. Absent: meningismus, lymphadenopathy Respiratory exam: Present: normal lung sounds bilaterally. Absent: respiratory distress, wheezes, rales Cardiovascular Exam: Present: regular rate, normal rhythm, normal heart sounds. Absent: systolic murmur, diastolic murmur, rubs, gallop GI/Abdominal exam: Present: soft. Absent: distended, tenderness, guarding, rebound, mass Extremities exam: Present: normal inspection, normal capillary refill. Absent: pedal edema, calf tenderness Back exam: Present: normal inspection. Absent: CVA tenderness (R), CVA tenderness (L), paraspinal tenderness, vertebral tenderness Neurological exam: Present: alert, oriented X3, CN II-XII intact. Absent: motor sensory deficit Skin exam: Present: warm, dry, intact, normal color. Absent: rash Course Vital Signs 05/20/22 05/20/22 02:47 05:50 Temperature 98.8 F Pulse Rate 115 H 100 Respiratory 18 16 Rate Blood Pressure 112/60 109/56 O2 Sat by Pulse 98 99 Oximetry Medical Decision Making - Medical Decision Making This patient is 21-year-old woman presenting for pain and muscle movements to the right side of her neck. The patient had complete resolution of symptoms after a dose of Valium. The workup here does not reveal etiology. I discussed results with the patient and partner. I suggested admission to have further evaluation by neurology including possibly an EEG and MRI. The patient states that she is feeling well and that there is something she needs to at home today. She will return if there is a recurrence of symptoms or if there is any difficulty in following up with neurology in the next couple of days. Discussed appropriate further care and follow-up as well as return parameters. Was pt. sent in by a medical professional or institution? @ -No Did you speak to anyone other than the patient for history? @ -Partner Did you review nursing and triage notes? @ -[agree Were old charts reviewed? @ -[No Differential Diagnosis? @ - Differential diagnosis of movement disorder includes but not limited to: Atypical seizure, intracranial mass, demyelinating disorder, neurologic degenerative disease, metabolic disorder, endocrine disorder amongst other processes EKG interpreted by me (3pts min.)? @ -[none] X-rays interpreted by me (1pt min.)? @ -[None CT interpreted by me (1pt min.)? @ -[See chart U/S interpreted by me (1pt. min.)? @ -[none] What testing was considered but not performed? (CT, X-rays, U/S, labs)? Why? @ [None What meds were considered but not given? Why? @ -[none] Did you discuss the management of the patient with other professionals? @ -[No Did you reconcile home meds? @ -[no Was smoking cessation discussed for >3mins.? @ -[none] Was critical care preformed (if so, how long)? @ -[none] Were there social determinants of health that impacted care today? How? (Homelessness, low income, unemployed, alcoholism, drug addiction, transporta tion, low edu. Level, literacy, decrease access to med. care, [facility], rehab)? @ -[No Was there de-escalation of care discussed even if they declined? (Discuss DNR or withdrawal of care, Hospice)? @ -[No What co-morbidities impacted this encounter? (DM, HTN, Smoking, COPD, CAD, Cancer, CVA, Hep., AIDS, mental health diagnosis, sleep apnea, morbid obesity)? @ -[None Was patient admitted / discharged? @ -[Discharged Undiagnosed new problem with uncertain prognosis? @ -[none] Drug Therapy requiring intensive monitoring for toxicity (Heparin, Nitro, Insulin, Cardizem)? @ -[none] Were any procedures done? @ -[none] Diagnosis/symptom? @ -[1. Acute movement disorder Acute, or Chronic, or Acute on Chronic? @ -[Acute Uncomplicated (without systemic symptoms) or Complicated (systemic symptoms)? @ -[uncomplicated Side effects of treatment? @ -[none] Exacerbation, Progression, or Severe Exacerbation] @ -[no] Poses a threat to life or bodily function? @ -[No - Lab Data Result diagrams: 05/20/22 03:40 05/20/22 03:40 Lab Results 05/20/22 05/20/22 05/20/22 Range/Units 03:40 03:40 04:16 WBC 13.2 H (3.8-10.6) k/uL RBC 4.45 (3.80-5.40) m/uL Hgb 12.6 (11.4-16.0) gm/dL Hct 36.9 (34.0-46.0) % MCV 83.1 (80.0-100.0) fL MCH 28.4 (25.0-35.0) pg MCHC 34.2 (31.0-37.0) g/dL RDW 12.4 (11.5-15.5) % Plt Count 356 (150-450) k/uL MPV 6.7 Neutrophils % 60 % Lymphocytes % 32 % Monocytes % 5 % Eosinophils % 1 % Basophils % 1 % Neutrophils # 7.9 H (1.3-7.7) k/uL Lymphocytes # 4.2 (1.0-4.8) k/uL Monocytes # 0.6 (0-1.0) k/uL Eosinophils # 0.1 (0-0.7) k/uL Basophils # 0.1 (0-0.2) k/uL Sodium 140 (137-145) mmol/L Potassium 3.9 (3.5-5.1) mmol/L Chloride 108 H (98-107) mmol/L Carbon Dioxide 21 L (22-30) mmol/L Anion Gap 11 mmol/L BUN 19 H (7-17) mg/dL Creatinine 0.67 (0.52-1.04) mg/dL Est GFR (CKD-EPI)AfAm >90 (>60 ml/min/1.73 sqM) Est GFR (CKD-EPI)NonAf >90 (>60 ml/min/1.73 sqM) Glucose 79 (74-99) mg/dL Calcium 9.3 (8.4-10.2) mg/dL Total Bilirubin 0.5 (0.2-1.3) mg/dL AST 30 (14-36) U/L ALT 23 (4-34) U/L Alkaline Phosphatase 64 (38-126) U/L Total Protein 7.3 (6.3-8.2) g/dL Albumin 4.6 (3.5-5.0) g/dL Urine HCG, Qual Not Detected (Not Detectd) Urine Opiates Screen (NotDetected) Ur Oxycodone Screen (NotDetected) Urine Methadone Screen (NotDetected) Ur Propoxyphene Screen (NotDetected) Ur Barbiturates Screen (NotDetected) U Tricyclic Antidepress (NotDetected) Ur Phencyclidine Scrn (NotDetected) Ur Amphetamines Screen (NotDetected) U Methamphetamines Scrn (NotDetected) U Benzodiazepines Scrn (NotDetected) Urine Cocaine Screen (NotDetected) U Marijuana (THC) Screen (NotDetected) 05/20/22 Range/Units 04:16 WBC (3.8-10.6) k/uL RBC (3.80-5.40) m/uL Hgb (11.4-16.0) gm/dL Hct (34.0-46.0) % MCV (80.0-100.0) fL MCH (25.0-35.0) pg MCHC (31.0-37.0) g/dL RDW (11.5-15.5) % Plt Count (150-450) k/uL MPV Neutrophils % % Lymphocytes % % Monocytes % % Eosinophils % % Basophils % % Neutrophils # (1.3-7.7) k/uL Lymphocytes # (1.0-4.8) k/uL Monocytes # (0-1.0) k/uL Eosinophils # (0-0.7) k/uL Basophils # (0-0.2) k/uL Sodium (137-145) mmol/L Potassium (3.5-5.1) mmol/L Chloride (98-107) mmol/L Carbon Dioxide (22-30) mmol/L Anion Gap mmol/L BUN (7-17) mg/dL Creatinine (0.52-1.04) mg/dL Est GFR (CKD-EPI)AfAm (>60 ml/min/1.73 sqM) Est GFR (CKD-EPI)NonAf (>60 ml/min/1.73 sqM) Glucose (74-99) mg/dL Calcium (8.4-10.2) mg/dL Total Bilirubin (0.2-1.3) mg/dL AST (14-36) U/L ALT (4-34) U/L Alkaline Phosphatase (38-126) U/L Total Protein (6.3-8.2) g/dL Albumin (3.5-5.0) g/dL Urine HCG, Qual (Not Detectd) Urine Opiates Screen Not Detected (NotDetected) Ur Oxycodone Screen Not Detected (NotDetected) Urine Methadone Screen Not Detected (NotDetected) Ur Propoxyphene Screen Not Detected (NotDetected) Ur Barbiturates Screen Not Detected (NotDetected) U Tricyclic Antidepress Not Detected (NotDetected) Ur Phencyclidine Scrn Not Detected (NotDetected) Ur Amphetamines Screen Not Detected (NotDetected) U Methamphetamines Scrn Not Detected (NotDetected) U Benzodiazepines Scrn Not Detected (NotDetected) Urine Cocaine Screen Not Detected (NotDetected) U Marijuana (THC) Screen Not Detected (NotDetected) Disposition Clinical Impression: Movement disorder Disposition: HOME SELF-CARE Condition: Good Instructions (If sedation given, give patient instructions): Tic Disorder (ED) Is patient prescribed a controlled substance at d/c from ED?: No Referrals: Denis Marsh DO [Primary Care Provider] - 1-2 days Barry Caballero MD [STAFF PHYSICIAN] - 1-2 days
[2022-05-20 03:58] LABS: Basophils # (A) 0.1 k/uL (0-0.2); Basophils % (A) 1 %; Eosinophils # (A) 0.1 k/uL (0-0.7); Eosinophils % (A) 1 %; HCT 36.9 % (34.0-46.0); HGB 12.6 gm/dL (11.4-16.0); Lymphocytes # (A) 4.2 k/uL (1.0-4.8); Lymphocytes % (A) 32 %; MCH 28.4 pg (25.0-35.0); MCHC 34.2 g/dL (31.0-37.0); MCV 83.1 fL (80.0-100.0); Mean Platelet Volume 6.7; Monocytes # (A) 0.6 k/uL (0-1.0); Monocytes % (A) 5 %; Neutrophils # (A) 7.9 k/uL (1.3-7.7); Neutrophils % (A) 60 %; Platelet Count 356 k/uL (150-450); RBC 4.45 m/uL (3.80-5.40); RDW 12.4 % (11.5-15.5); WBC 13.2 k/uL (3.8-10.6)
--- NOTE | 2022-05-20 04:05 | CT ---
EXAMINATION TYPE: CT brain wo con DATE OF EXAM: 05/20/2022 COMPARISON: 08/26/2017 HISTORY: choreiform movement CT DLP: 1025.2 mGycm Automated exposure control for dose reduction was used. Images of the brain obtained with no contrast. Ventricles and sulci appear normal. There is no mass effect or midline shift. No sign of intracranial hemorrhage. Calvarium is intact. No evidence of cerebral edema. IMPRESSION: Negative CT scan of the brain. No change.
[2022-05-20 04:12] LABS: ALT 23 U/L (4-34); AST 30 U/L (14-36); African American GFR (CKD) >90 (>60 ml/min/1.73 sqM); Albumin 4.6 g/dL (3.5-5.0); Alkaline Phosphatase 64 U/L (38-126); Anion Gap 11 mmol/L; Blood Urea Nitrogen 19 mg/dL (7-17); Calcium 9.3 mg/dL (8.4-10.2); Carbon Dioxide 21 mmol/L (22-30); Chloride 108 mmol/L (98-107); Glucose 79 mg/dL (74-99); Non-African American GFR(CKD) >90 (>60 ml/min/1.73 sqM); Potassium 3.9 mmol/L (3.5-5.1); Sodium 140 mmol/L (137-145); Total Bilirubin 0.5 mg/dL (0.2-1.3); Total Protein 7.3 g/dL (6.3-8.2)
[2022-05-20 04:42] LABS: Amphetamine Screen,Urine Not Detected (NotDetected); Barbiturate Screen,Urine Not Detected (NotDetected); Benzodiazepines Screen,Urine Not Detected (NotDetected); Cocaine Screen,Urine Not Detected (NotDetected); Methadone Screen, Urine Not Detected (NotDetected); Opiate Screen,Urine Not Detected (NotDetected); Oxycodone Screen, Urine Not Detected (NotDetected); Phencyclidine Screen,Urine Not Detected (NotDetected); Tricyclic Antidepressant,Urine Not Detected (NotDetected); Urn Cannabinoid Scrn Not Detected (NotDetected)
[2022-05-20 05:50] VITALS: BP 109/56; PULSE 100; RESP 16
== END 2022-05-20 05:51 | disposition home or self-care (01) ==
LOC: EC 02:43
DX: G25.9 Extrapyramidal and movement disorder, unspecified (principal); J45.909 Unspecified asthma, uncomplicated; F90.9 Attention-deficit hyperactivity disorder, unspecified type; F41.9 Anxiety disorder, unspecified; F32.A Depression, unspecified; F17.290 Nicotine dependence, other tobacco product, uncomplicated; Z79.899 Other long term (current) drug therapy
CPT/HCPCS: 36415; 80053; 85025; 81025; 80306; 70450; 99284; 96374; 96361; J3360

== ENCOUNTER → 2022-11-01 | Outpatient (CLI) | payer OTHER ==
[2022-11-01 16:41] LABS: T4, Free (Free Thyroxine) 0.98 ng/dL (0.80-1.80)
== END | disposition home or self-care (01) ==
LOC: LABWHC1 11:04
PROVIDERS: ATTEND Student in an Organized Health Care Education/Training Program
DX: E03.9 Hypothyroidism, unspecified (principal)
CPT/HCPCS: 36415; 84439; 84443

== ENCOUNTER 2022-12-03 01:16 | Emergency (ER) | payer OTHER ==
[2022-12-03 01:30] VITALS: RESP 18; TEMP 98.7
[2022-12-03] MEDS ORDERED: PROCHLORPERAZINE INJ 10 MG/2 ML VIAL IVP STA (01:40)
[2022-12-03] MEDS ORDERED: DEXAMETHASONE SOD PHOSPHATE 4 MG/ML 1 ML VIAL IVP STA (01:40)
[2022-12-03] MEDS ORDERED: diphenhydrAMINE 50 MG/ML 1 ML VIAL IVP STA (01:40)
[2022-12-03] MEDS ORDERED: KETOROLAC 15 MG/ML 1 ML VIAL IVP STA (01:40)
[2022-12-03] MEDS ORDERED: SODIUM CHLORIDE 0.9% 1,000 ML IV STA (01:40)
--- NOTE | 2022-12-03 01:49 | ED ---
General Adult HPI - General Chief complaint: Headache Stated complaint: Headache Time Seen by Provider: 12/03/22 01:34 Source: patient, RN notes reviewed, old records reviewed Mode of arrival: ambulatory Limitations: no limitations - History of Present Illness Initial comments: Patient is a 22-year-old female with past medical history remarkable for carli melyssa. Presents emergency Department complaining of a headache. Has been intermittent over the last 3-4 days. Is associated with some right upper tooth pain which has been more severe over the last few days as well. Denies fevers, chills, cough. Has a known history of poor dentition. Denies any chest pain, abdominal pain, nausea, vomiting. Has a history of migraines. Presents because this headache is more persistent over multiple days. Is not the worst headache of her life. Is not on blood thinners. Denies being . Denies any abdominal pain, nausea, vomiting. No known sick contacts. Presents for further evaluation of her concern for her headache. Does have follow-up with a dentist later this month for dental work. - Related Data Home Medications Medication Instructions Recorded Confirmed Pnv No.95/Ferrous Fum/Folic AC 1 tab PO DAILY 01/19/21 01/17/22 [ Multivitamin Tablet] Albuterol Sulfate [Proair Hfa] 2 puff INHALATION RT-Q6H PRN 01/17/22 01/17/22 Cetirizine HCl 10 mg PO HS 01/17/22 01/17/22 Cholecalciferol [Vitamin D3 (25 50 mcg PO DAILY 01/17/22 01/17/22 Mcg = 1000 Iu)] Magnesium Oxide [Mag-Ox] 400 mg PO DAILY 01/17/22 01/17/22 Methylphenidate HCl [Concerta] 72 mg PO DAILY 01/17/22 01/17/22 Montelukast [Singulair] 10 mg PO DAILY 01/17/22 01/17/22 Sertraline [Zoloft] 25 mg PO DAILY 01/17/22 01/17/22 medroxyPROGESTERone [Depo-Provera] 150 mg IM Q84D 01/17/22 01/17/22 Previous Rx's Medication Instructions Recorded Acetaminophen Tab [Tylenol Tab] 1,000 mg PO Q6HR PRN #30 tablet 01/18/22 Ibuprofen [Motrin] 600 mg PO Q8HR PRN #30 tab 01/18/22 Simethicone [Gas-X] 125 mg PO AC-TID PRN #20 capsule 01/18/22 Ondansetron Odt [Zofran Odt] 4 mg PO Q8HR PRN #9 tab 01/19/22 Amoxic-Pot Clav 875-125Mg 1 tab PO Q12HR 5 Days #10 tab 12/03/22 [Augmentin 875-125] Allergies Allergy/AdvReac Type Severity Reaction Status Date / Time No Known Allergies Allergy Verified 01/17/22 18:04 Review of Systems ROS Statement: Those systems with pertinent positive or pertinent negative responses have been documented in the HPI. Review of Systems: CONST: Denies fever EYES: Denies blurry vision ENT: Denies nasal congestion C/V: Denies Chest pain RESP: Denies shortness of breath GI: Denies abdominal pain : Denies dysuria SKIN: Denies rash. MSK: Denies joint pain. NEURO: Endorses headache ROS Other: All systems not noted in ROS Statement are negative. Past Medical History Past Medical History: Asthma Additional Past Medical History / Comment(s): Scoliosis, tendonitis in L hand, migraines History of Any Multi-Drug Resistant Organisms: None Reported Past Surgical History: Section Additional Past Surgical History / Comment(s): c section jan 2021 Past Anesthesia/Blood Transfusion Reactions: No Reported Reaction Past Psychological History: ADD/ADHD, Anxiety, Depression, Panic Disorder, PTSD Smoking Status: Vaper Past Alcohol Use History: None Reported Past Drug Use History: None Reported - Past Family History Mother Family Medical History: Osteoarthritis (OA) General Exam - General Exam Comments Initial Comments: General: Appears in no acute distress. HEAD: Normal with no signs of head trauma. EYES: PERRLA, EOMI, conjunctiva normal, no discharge. Pupils are 3 mm and equal bilaterally. ENT: Hearing grossly intact, normal oropharynx. Patient has poor dentition. Tooth #1 appears eroded with dental caries. Tooth #2 has not yet distended and is in the gumline which is chronic for the patient. No evidence of periapical abscess. No evidence of tooth infection at this time. RESPIRATORY: Clear breath sounds bilaterally. C/V: Regular rate and rhythm. S1 and S2 auscultated. ABD: Abdomen is nondistended. EXT: No obvious deformity. SKIN: No rashes or lesions observed on exposed skin. NEURO: Alert and oriented 4. Limitations: no limitations Course Vital Signs 12/03/22 01:26 Temperature 98.7 F Pulse Rate 92 Respiratory 18 Rate Blood Pressure 123/86 O2 Sat by Pulse 98 Oximetry Medical Decision Making - Medical Decision Making Was pt. sent in by a medical professional or institution (, LEONARD, DIRECTOR OF RESEARCH, urgent care, hospital, or intermediate...) When possible be specific @ -No Did you speak to anyone other than the patient for history (EMS, parent, family, police, friend...)? What history was obtained from this source @ -No Did you review nursing and triage notes (agree or disagree)? Why? @ -I reviewed and agree with nursing and triage notes Were old charts reviewed (outside hosp., previous admission, EMS record, old EKG, old radiological studies, urgent care reports/EKG's, intermediate records)? Report findings @ -No old charts were reviewed Differential Diagnosis (chest pain, altered mental status, abdominal pain women, abdominal pain men, vaginal bleeding, weakness, fever, dyspnea, syncope, headache, dizziness, GI bleed, back pain, seizure, CVA, palpatations, mental health, musculoskeletal)? @ -Migraine headache, dental infection, dentalgia, tooth ache. This list is not all-inclusive. EKG interpreted by me (3pts min.). @ -None done X-rays interpreted by me (1pt min.). @ -None done CT interpreted by me (1pt min.). @ -None done U/S interpreted by me (1pt. min.). @ -None done What testing was considered but not performed or refused? (CT, X-rays, U/S, labs)? Why? @ -None What meds were considered but not given or refused? Why? @ -None Did you discuss the management of the patient with other professionals (professionals i.e. LEONARD Campos, DIRECTOR OF RESEARCH, lab, RT, psych nurse, social science instructor, operation supervisor, teacher, mortgage loan officer originator, manager case management)? Give summary @ -No Was smoking cessation discussed for >3mins.? @ -No Was critical care preformed (if so, how long)? @ -No Were there social determinants of health that impacted care today? How? (Homelessness, low income, unemployed, alcoholism, drug addiction, transportation, low edu. Level, literacy, decrease access to med. care, alf, r ehab)? @ -No Was there de-escalation of care discussed even if they declined (Discuss DNR or withdrawal of care, Hospice)? DNR status @ -No What co-morbidities impacted this encounter? (DM, HTN, Smoking, COPD, CAD, Cancer, CVA, ARF, Chemo, Hep., AIDS, mental health diagnosis, sleep apnea, morbid obesity)? @ -Migraines Was patient admitted / discharged? Hospital course, mention meds given and route, prescriptions, significant lab abnormalities, going to OR and other pertinent info. @ -Based on the patient's presentation and physical exam, I'm concerned for appears to be somewhat chronic dental pain and poor dentition as well as migraine headache. No red flag symptoms. Neuro exam within normal limits. Patient does not appear in significant distress. Vital signs within acceptable limits. Discussed possible management and she was amenable to an IV migraine cocktail. She'll be reevaluated following administration. Patient is feeling improved. She'll be discharged home at this time. Recommended follow-up with dentistry but she has. Discussed antibiotics and she will be empirically placed on these for her poor dentition considering the cheek pain started in the last few days. She was in agreement this plan. I will provide the patient with a prescription for Augmentin. I instructed the patient to follow up with their PCP in the next 1-3 days. I explained that the patient should return to the emergency department if they experience any worsening symptoms. Strict return precautions were discussed with the patient. The patient expressed understanding of these instructions. I answered all questions that the patient had. The patient was discharged home in good condition with their prescriptions and follow up information. Undiagnosed new problem with uncertain prognosis? @ -No Drug Therapy requiring intensive monitoring for toxicity (Heparin, Nitro, Insulin, Cardizem)? @ -No Were any procedures done? @ -No Diagnosis/symptom? @ -Headache, toothache Acute, or Chronic, or Acute on Chronic? @ -Acute Uncomplicated (without systemic symptoms) or Complicated (systemic symptoms)? @ -Complicated Side effects of treatment? @ -No Exacerbation, Progression, or Severe Exacerbation? @ -No Poses a threat to life or bodily function? How? (Chest pain, [place], [place], pneumonia, PE, COPD, DKA, ARF, appy, cholecystitis, CVA, Diverticulitis, Homicidal, Suicidal, threat to staff... and all critical care pts) @ -No Disposition Clinical Impression: Toothache, Headache Disposition: HOME SELF-CARE Condition: Good Instructions (If sedation given, give patient instructions): Acute Headache (ED) Prescriptions: Amoxic-Pot Clav 875-125Mg [Augmentin 875-125] 1 tab PO Q12HR 5 Days #10 tab Is patient prescribed a controlled substance at d/c from ED?: No Referrals: Sana Salmon [Primary Care Provider] - 1-2 days Time of Disposition: 02:30
[2022-12-03 02:39] VITALS: BP 128/84; PULSE 88
== END 2022-12-03 02:39 | disposition home or self-care (01) ==
LOC: EC 01:16
DX: R51.9 Headache, unspecified (principal); K02.9 Dental caries, unspecified; J45.909 Unspecified asthma, uncomplicated; F32.A Depression, unspecified; F41.9 Anxiety disorder, unspecified; F17.290 Nicotine dependence, other tobacco product, uncomplicated; Z79.899 Other long term (current) drug therapy
CPT/HCPCS: 99283; 96374; 96375 ×3; J1200; J0780; J1100; J1885

== ENCOUNTER 2022-12-03 18:49 | Emergency (ER) | payer OTHER ==
[2022-12-03] MEDS ORDERED: DEXAMETHASONE SOD PHOSPHATE 10 MG/ML 1 ML VIAL IVP STA (19:20)
[2022-12-03] MEDS ORDERED: SODIUM CHLORIDE 0.9% 1,000 ML IV STA (19:20)
[2022-12-03] MEDS ORDERED: KETOROLAC 15 MG/ML 1 ML VIAL IVP STA (19:20)
[2022-12-03] MEDS ORDERED: diphenhydrAMINE 50 MG/ML 1 ML VIAL IVP STA (19:20)
[2022-12-03] MEDS ORDERED: METOCLOPRAMIDE 5 MG/ML 2 ML VIAL IVP STA (19:20)
--- NOTE | 2022-12-03 19:35 | ED ---
Headache HPI - General Chief Complaint: Headache Stated Complaint: headache Time Seen by Provider: 12/03/22 19:06 Source: patient, RN notes reviewed Mode of arrival: ambulatory Limitations: no limitations - History of Present Illness Initial Comments: This is a 22-year-old female who presents to the emergency department for a headache. Patient was evaluated here for a headache yesterday. She was given a migraine cocktail and symptoms improved. She was subsequently discharged home. At that time the pain was also related to her teeth and she was started on a course of Augmentin for a dental infection. States that her teeth are no longer painful, however she does continue to have pain in the right upper part of her head. She would not describe this as the worst headache of her life. Does report a long-standing history of migraines and states that after the medication last night were off, the pain returned. She does see a neurologist and was started on a medication 1 week ago. States that she takes this as needed, but cannot recall what it was called. She did try taking this with no relief. Additionally states that she has been told that she should be taking magnesium daily, but has not been doing this either, as she was concerned that she may be . Denies any fevers, chills, sore throat, cough, dyspnea, chest pain, palpitations, abdominal pain, nausea, vomiting, diarrhea, or back pain. MD Complaint: headache, "migraine" - Related Data Home Medications Medication Instructions Recorded Confirmed Pnv No.95/Ferrous Fum/Folic AC 1 tab PO DAILY 01/19/21 01/17/22 [ Multivitamin Tablet] Albuterol Sulfate [Proair Hfa] 2 puff INHALATION RT-Q6H PRN 01/17/22 01/17/22 Cetirizine HCl 10 mg PO HS 01/17/22 01/17/22 Cholecalciferol [Vitamin D3 (25 50 mcg PO DAILY 01/17/22 01/17/22 Mcg = 1000 Iu)] Magnesium Oxide [Mag-Ox] 400 mg PO DAILY 01/17/22 01/17/22 Methylphenidate HCl [Concerta] 72 mg PO DAILY 01/17/22 01/17/22 Montelukast [Singulair] 10 mg PO DAILY 01/17/22 01/17/22 Sertraline [Zoloft] 25 mg PO DAILY 01/17/22 01/17/22 medroxyPROGESTERone [Depo-Provera] 150 mg IM Q84D 01/17/22 01/17/22 Previous Rx's Medication Instructions Recorded Acetaminophen Tab [Tylenol Tab] 1,000 mg PO Q6HR PRN #30 tablet 01/18/22 Ibuprofen [Motrin] 600 mg PO Q8HR PRN #30 tab 01/18/22 Simethicone [Gas-X] 125 mg PO AC-TID PRN #20 capsule 01/18/22 Ondansetron Odt [Zofran Odt] 4 mg PO Q8HR PRN #9 tab 01/19/22 Amoxic-Pot Clav 875-125Mg 1 tab PO Q12HR 5 Days #10 tab 12/03/22 [Augmentin 875-125] Ketorolac [Toradol] 10 mg PO Q6HR PRN #15 tab 12/03/22 Allergies Allergy/AdvReac Type Severity Reaction Status Date / Time No Known Allergies Allergy Verified 01/17/22 18:04 Review of Systems ROS Statement: Those systems with pertinent positive or pertinent negative responses have been documented in the HPI. ROS Other: All systems not noted in ROS Statement are negative. Past Medical History Past Medical History: Asthma Additional Past Medical History / Comment(s): Scoliosis, tendonitis in L hand, migraines History of Any Multi-Drug Resistant Organisms: None Reported Past Surgical History: Section Additional Past Surgical History / Comment(s): c section jan 2021 Past Anesthesia/Blood Transfusion Reactions: No Reported Reaction Past Psychological History: ADD/ADHD, Anxiety, Depression, Panic Disorder, PTSD Smoking Status: Vaper Past Alcohol Use History: None Reported Past Drug Use History: None Reported - Past Family History Mother Family Medical History: Osteoarthritis (OA) General Exam Limitations: no limitations General appearance: alert, in no apparent distress Head exam: Present: atraumatic, normocephalic, normal inspection Eye exam: Present: normal appearance, PERRL, EOMI. Absent: scleral icterus, conjunctival injection, periorbital swelling Respiratory exam: Present: normal lung sounds bilaterally. Absent: respiratory distress, wheezes, rales, rhonchi, stridor Cardiovascular Exam: Present: regular rate, normal rhythm, normal heart sounds. Absent: systolic murmur, diastolic murmur, rubs, gallop, clicks Neurological exam: Present: alert, oriented X3, CN II-XII intact Psychiatric exam: Present: normal affect, normal mood Skin exam: Present: warm, dry, intact, normal color. Absent: rash Course Vital Signs 12/03/22 12/03/22 18:59 22:10 Temperature 99.0 F 98.1 F Pulse Rate 100 90 Respiratory 118 H 17 Rate Blood Pressure 129/86 135/82 O2 Sat by Pulse 100 99 Oximetry Medical Decision Making - Medical Decision Making This is a 22-year-old female who presents to the emergency department for a headache. Was pt. sent in by a medical professional or institution? @ -No Did you speak to anyone other than the patient for history? @ -No Did you review nursing and triage notes? @ -Yes, and I agree, it is accurate with regards to the patient's symptoms. Were old charts reviewed? @ -No Differential Diagnosis? @ -Differential Headache: Migraine, tension, cluster, carbon monoxide, central venous thrombosis, pension karma temporal arteritis, acute closure glaucoma, intercranial hemorrhage, mastoiditis, sinusitis, head injury, this is not meant to be an all-inclusive list. EKG interpreted by me (3pts min.)? @ -Not obtained X-rays interpreted by me (1pt min.)? @ -Not obtained CT interpreted by me (1pt min.)? @ -Not obtained U/S interpreted by me (1pt. min.)? @ -Not obtained What testing was considered but not performed? (CT, X-rays, U/S, labs)? Why? @ -None What meds were considered but not given? Why? @ -None Did you discuss the management of the patient with other professionals? @ -No Did you reconcile home meds? @ -No Was smoking cessation discussed for >3mins.? @ -No Was critical care preformed (if so, how long)? @ -No Were there social determinants of health that impacted care today? How? (Homelessness, low income, unemployed, alcoholism, drug addiction, transportation, low edu. Level, literacy, decrease access to med. care, shelter, rehab)? @ -No Was there de-escalation of care discussed even if they declined? (Discuss DNR or withdrawal of care, Hospice)? @ -No What co-morbidities impacted this encounter? (DM, HTN, Smoking, COPD, CAD, Cancer, CVA, Hep., AIDS, mental health diagnosis, sleep apnea, morbid obesity)? @ -Migraines Was patient admitted / discharged? @ -Discharged. Lab work obtained revealing minor leukocytosis, and was otherwise nonactionable. COVID, influenza, and RSV testing were negative. Patient initially treated with a migraine cocktail consisting of IV fluids, Toradol, Decadron, Reglan, and Benadryl. She only had minor improvement in symptoms, and was subsequently given 1 g of magnesium and a dose of Tylenol. States that after the magnesium and Tylenol, her symptoms essentially resolved and she felt comfortable with discharge home. I did send in a prescription for Toradol in the event the headache returns. Advised that she can try taking this to see if it is more effective than ibuprofen. She is however advised to avoid taking them together. I instructed her to resume taking the magnesium supplements that she is supposed to be taking as well. She will also continue with the Augmentin that was prescribed for a dental infection and follow-up with her dentist. Undiagnosed new problem with uncertain prognosis? @ -None Drug Therapy requiring intensive monitoring for toxicity (Heparin, Nitro, Insulin, Cardizem)? @ -None Were any procedures done? @ -None Diagnosis/symptom? @ -Headache Acute, or Chronic, or Acute on Chronic? @ -Acute Uncomplicated (without systemic symptoms) or Complicated (systemic symptoms)? @ -Uncomplicated Side effects of treatment? @ -None Exacerbation, Progression, or Severe Exacerbation] @ -Not applicable Poses a threat to life or bodily function? @ -No Return precautions reviewed in depth, the patient is instructed to return to the emergency department with any new, worsening, or concerning symptoms. Patient verbalized understanding. This case was discussed in detail with the attending ED physician, Dr. Rajan. Presentation, findings, and treatment plan discussed in detail as well. - Lab Data Result diagrams: 12/03/22 19:54 12/03/22 19:54 Lab Results 12/03/22 12/03/22 12/03/22 Range/Units 19:54 19:54 19:54 WBC 13.6 H (3.8-10.6) k/uL RBC 4.54 (3.80-5.40) m/uL Hgb 13.1 (11.4-16.0) gm/dL Hct 38.5 (34.0-46.0) % MCV 84.9 (80.0-100.0) fL MCH 28.9 (25.0-35.0) pg MCHC 34.1 (31.0-37.0) g/dL RDW 12.3 (11.5-15.5) % Plt Count 329 (150-450) k/uL MPV 7.1 Neutrophils % 71 % Lymphocytes % 23 % Monocytes % 4 % Eosinophils % 0 % Basophils % 0 % Neutrophils # 9.7 H (1.3-7.7) k/uL Lymphocytes # 3.1 (1.0-4.8) k/uL Monocytes # 0.6 (0-1.0) k/uL Eosinophils # 0.0 (0-0.7) k/uL Basophils # 0.0 (0-0.2) k/uL Sodium 139 (137-145) mmol/L Potassium 3.6 (3.5-5.1) mmol/L Chloride 105 (98-107) mmol/L Carbon Dioxide 22 (22-30) mmol/L Anion Gap 12 mmol/L BUN 12 (7-17) mg/dL Creatinine 0.38 L (0.52-1.04) mg/dL Est GFR (CKD-EPI)AfAm >90 (>60 ml/min/1.73 sqM) Est GFR (CKD-EPI)NonAf >90 (>60 ml/min/1.73 sqM) Glucose 106 H (74-99) mg/dL Plasma Lactic Acid Contreras 1.1 (0.7-2.0) mmol/L Calcium 9.6 (8.4-10.2) mg/dL Total Bilirubin 0.3 (0.2-1.3) mg/dL AST 21 (14-36) U/L ALT 14 (4-34) U/L Alkaline Phosphatase 65 (38-126) U/L C-Reactive Protein <0.5 (<1.0) mg/dL Total Protein 7.3 (6.3-8.2) g/dL Albumin 4.3 (3.5-5.0) g/dL HCG, Qual Not Detected Influenza Type A (PCR) (Not Detectd) Influenza Type B (PCR) (Not Detectd) RSV (PCR) (Not Detectd) SARS-CoV-2 (PCR) (Not Detectd) 12/03/22 Range/Units 19:54 WBC (3.8-10.6) k/uL RBC (3.80-5.40) m/uL Hgb (11.4-16.0) gm/dL Hct (34.0-46.0) % MCV (80.0-100.0) fL MCH (25.0-35.0) pg MCHC (31.0-37.0) g/dL RDW (11.5-15.5) % Plt Count (150-450) k/uL MPV Neutrophils % % Lymphocytes % % Monocytes % % Eosinophils % % Basophils % % Neutrophils # (1.3-7.7) k/uL Lymphocytes # (1.0-4.8) k/uL Monocytes # (0-1.0) k/uL Eosinophils # (0-0.7) k/uL Basophils # (0-0.2) k/uL Sodium (137-145) mmol/L Potassium (3.5-5.1) mmol/L Chloride (98-107) mmol/L Carbon Dioxide (22-30) mmol/L Anion Gap mmol/L BUN (7-17) mg/dL Creatinine (0.52-1.04) mg/dL Est GFR (CKD-EPI)AfAm (>60 ml/min/1.73 sqM) Est GFR (CKD-EPI)NonAf (>60 ml/min/1.73 sqM) Glucose (74-99) mg/dL Plasma Lactic Acid Contreras (0.7-2.0) mmol/L Calcium (8.4-10.2) mg/dL Total Bilirubin (0.2-1.3) mg/dL AST (14-36) U/L ALT (4-34) U/L Alkaline Phosphatase (38-126) U/L C-Reactive Protein (<1.0) mg/dL Total Protein (6.3-8.2) g/dL Albumin (3.5-5.0) g/dL HCG, Qual Influenza Type A (PCR) Not Detected (Not Detectd) Influenza Type B (PCR) Not Detected (Not Detectd) RSV (PCR) Not Detected (Not Detectd) SARS-CoV-2 (PCR) Not Detected (Not Detectd) Disposition Clinical Impression: Headache Disposition: HOME SELF-CARE Instructions (If sedation given, give patient instructions): Acute Headache (ED) Additional Instructions: Return to the emergency department with any new, worsening, or concerning symptoms. Begin taking your magnesium supplements daily again. If the headache returns, you can try taking the Toradol with Tylenol for pain relief. If you choose to take the Toradol, do not take it with any other [id number] anti- inflammatories such as ibuprofen. Take one or the other. Continue taking the antibiotic for your dental infection. Follow up with your primary care provider in 1-2 days. Prescriptions: Ketorolac [Toradol] 10 mg PO Q6HR PRN #15 tab PRN Reason: Pain Is patient prescribed a controlled substance at d/c from ED?: No Referrals: Sana Salmon [Primary Care Provider] - 1-2 days
[2022-12-03 20:10] LABS: Basophils % (A) 0 %; Eosinophils % (A) 0 %; HCT 38.5 % (34.0-46.0); HGB 13.1 gm/dL (11.4-16.0); Lymphocytes # (A) 3.1 k/uL (1.0-4.8); Lymphocytes % (A) 23 %; MCH 28.9 pg (25.0-35.0); MCHC 34.1 g/dL (31.0-37.0); MCV 84.9 fL (80.0-100.0); Mean Platelet Volume 7.1; Monocytes # (A) 0.6 k/uL (0-1.0); Monocytes % (A) 4 %; Neutrophils # (A) 9.7 k/uL (1.3-7.7); Neutrophils % (A) 71 %; Platelet Count 329 k/uL (150-450); RBC 4.54 m/uL (3.80-5.40); RDW 12.3 % (11.5-15.5); WBC 13.6 k/uL (3.8-10.6)
[2022-12-03 20:28] LABS: ALT 14 U/L (4-34); AST 21 U/L (14-36); African American GFR (CKD) >90 (>60 ml/min/1.73 sqM); Albumin 4.3 g/dL (3.5-5.0); Alkaline Phosphatase 65 U/L (38-126); Anion Gap 12 mmol/L; Blood Urea Nitrogen 12 mg/dL (7-17); C Reactive Protein <0.5 mg/dL (<1.0); Calcium 9.6 mg/dL (8.4-10.2); Carbon Dioxide 22 mmol/L (22-30); Chloride 105 mmol/L (98-107); Glucose 106 mg/dL (74-99); Non-African American GFR(CKD) >90 (>60 ml/min/1.73 sqM); Potassium 3.6 mmol/L (3.5-5.1); Sodium 139 mmol/L (137-145); Total Bilirubin 0.3 mg/dL (0.2-1.3); Total Protein 7.3 g/dL (6.3-8.2)
[2022-12-03 20:39] LABS: HCG,Qualitative Serum Not Detected
[2022-12-03] MEDS ORDERED: MAGNESIUM SULFATE-D5W PMX 1 GM in DEXTROSE/WATER 1 100ML.BAG IVPB ONE (20:41)
[2022-12-03] MEDS ORDERED: ACETAMINOPHEN TAB 500 MG TAB PO STA (20:41)
[2022-12-03 22:20] VITALS: BP 135/82; PULSE 90; RESP 17; TEMP 98.1
== END 2022-12-03 22:20 | disposition home or self-care (01) ==
LOC: EC 18:49
DX: R51.9 Headache, unspecified (principal); J45.909 Unspecified asthma, uncomplicated; F41.9 Anxiety disorder, unspecified; F32.A Depression, unspecified; F17.290 Nicotine dependence, other tobacco product, uncomplicated; Z79.899 Other long term (current) drug therapy; Z20.822 Contact with and (suspected) exposure to COVID-19
CPT/HCPCS: 36415; 80053; 83605; 85025; 86140; 84703; 87636; 99284; 96365; 96375 ×4; J1200; J1100; J2765; J3475; J1885

== ENCOUNTER 2023-01-23 00:36 | Emergency (ER) | payer OTHER ==
[2023-01-23 01:05] VITALS: RESP 18; TEMP 98.3
[2023-01-23] MEDS ORDERED: diphenhydrAMINE 50 MG/ML 1 ML VIAL IVP STA (02:45)
[2023-01-23] MEDS ORDERED: DEXAMETHASONE SOD PHOSPHATE 10 MG/ML 1 ML VIAL IVP STA (02:45)
[2023-01-23] MEDS ORDERED: ONDANSETRON 4 MG/2 ML VIAL IVP STA (02:45)
[2023-01-23] MEDS ORDERED: KETOROLAC 15 MG/ML 1 ML VIAL IVP STA (02:45)
[2023-01-23] MEDS ORDERED: METOCLOPRAMIDE 5 MG/ML 2 ML VIAL IVP STA (02:45)
[2023-01-23] MEDS ORDERED: SODIUM CHLORIDE 0.9% 1,000 ML IV STA (02:45)
--- NOTE | 2023-01-23 03:49 | ED ---
Headache HPI - General Chief Complaint: Headache Stated Complaint: Headache Time Seen by Provider: 01/23/23 02:44 Mode of arrival: ambulatory Limitations: no limitations - History of Present Illness Initial Comments: Patient 22-year-old female presents to the emergency department for migraine. Patient had intermittent migraine for the past month. She has history of migraine states this feels similar to her migraines have been more frequent. Patient does follow with a neurologist she cannot remember the name. States she stopped taking her migraine medications including magnesium that she wanted to "cleanse." She denies numbness and tingling. Denies focal weakness. Reports no vomiting. No fever or upper respiratory symptoms. No recent fall or head trauma. - Related Data Home Medications Medication Instructions Recorded Confirmed Pnv No.95/Ferrous Fum/Folic AC 1 tab PO DAILY 01/19/21 01/17/22 [ Multivitamin Tablet] Albuterol Sulfate [Proair Hfa] 2 puff INHALATION RT-Q6H PRN 01/17/22 01/17/22 Cetirizine HCl 10 mg PO HS 01/17/22 01/17/22 Cholecalciferol [Vitamin D3 (25 50 mcg PO DAILY 01/17/22 01/17/22 Mcg = 1000 Iu)] Magnesium Oxide [Mag-Ox] 400 mg PO DAILY 01/17/22 01/17/22 Methylphenidate HCl [Concerta] 72 mg PO DAILY 01/17/22 01/17/22 Montelukast [Singulair] 10 mg PO DAILY 01/17/22 01/17/22 Sertraline [Zoloft] 25 mg PO DAILY 01/17/22 01/17/22 medroxyPROGESTERone [Depo-Provera] 150 mg IM Q84D 01/17/22 01/17/22 Previous Rx's Medication Instructions Recorded Acetaminophen Tab [Tylenol Tab] 1,000 mg PO Q6HR PRN #30 tablet 01/18/22 Ibuprofen [Motrin] 600 mg PO Q8HR PRN #30 tab 01/18/22 Simethicone [Gas-X] 125 mg PO AC-TID PRN #20 capsule 01/18/22 Ondansetron Odt [Zofran Odt] 4 mg PO Q8HR PRN #9 tab 01/19/22 Amoxic-Pot Clav 875-125Mg 1 tab PO Q12HR 5 Days #10 tab 12/03/22 [Augmentin 875-125] Ketorolac [Toradol] 10 mg PO Q6HR PRN #15 tab 12/03/22 Ibuprofen [Motrin] 600 mg PO Q6HR PRN #30 tab 01/23/23 Allergies Allergy/AdvReac Type Severity Reaction Status Date / Time No Known Allergies Allergy Verified 01/17/22 18:04 Review of Systems ROS Statement: Those systems with pertinent positive or pertinent negative responses have been documented in the HPI. ROS Other: All systems not noted in ROS Statement are negative. Past Medical History Past Medical History: Asthma Additional Past Medical History / Comment(s): Scoliosis, tendonitis in L hand, migraines History of Any Multi-Drug Resistant Organisms: None Reported Past Surgical History: Section Additional Past Surgical History / Comment(s): c section jan 2021 Past Anesthesia/Blood Transfusion Reactions: No Reported Reaction Past Psychological History: ADD/ADHD, Anxiety, Depression, Panic Disorder, PTSD Smoking Status: Vaper Past Alcohol Use History: None Reported Past Drug Use History: None Reported - Past Family History Mother Family Medical History: Osteoarthritis (OA) General Exam Limitations: no limitations General appearance: alert Head exam: Present: atraumatic, normocephalic, normal inspection Eye exam: Present: normal appearance, PERRL, EOMI. Absent: scleral icterus, conjunctival injection, periorbital swelling Respiratory exam: Present: normal lung sounds bilaterally. Absent: respiratory distress, wheezes, rales, rhonchi, stridor Cardiovascular Exam: Present: regular rate, normal rhythm, normal heart sounds. Absent: systolic murmur, diastolic murmur, rubs, gallop, clicks Neurological exam: Present: alert Expanded Sensory exam: Upper Extremity Light Touch: Normal, Lower Extremity Light Touch: Normal Motor strength exam: RUE: 5, LUE: 5, RLE: 5, LLE: 5 Psychiatric exam: Present: normal affect, normal mood Skin exam: Present: warm, dry, intact, normal color. Absent: rash Course Vital Signs 01/23/23 01/23/23 00:55 04:45 Temperature 98.3 F 98.3 F Pulse Rate 68 87 Respiratory 18 18 Rate Blood Pressure 130/86 103/63 O2 Sat by Pulse 100 99 Oximetry Medical Decision Making - Medical Decision Making Was pt. sent in by a medical professional or institution (, LEONARD, ANIMAL TREATMENT INVESTIGATOR, urgent care, hospital, or halfway...) When possible be specific @ -No Did you speak to anyone other than the patient for history (EMS, parent, family, police, friend...)? What history was obtained from this source @ -No Did you review nursing and triage notes (agree or disagree)? Why? @ -I reviewed and agree with nursing and triage notes Were old charts reviewed (outside hosp., previous admission, EMS record, old EKG, old radiological studies, urgent care reports/EKG's, halfway records)? Report findings @ -No old charts were reviewed Differential Diagnosis (chest pain, altered mental status, abdominal pain women, abdominal pain men, vaginal bleeding, weakness, fever, dyspnea, syncope, headache, dizziness, GI bleed, back pain, seizure, CVA, palpatations, mental health)? @ -Differential Headache: Migraine, tension, cluster, carbon monoxide, central venous thrombosis, pension karma temporal arteritis, acute closure glaucoma, intercranial hemorrhage, mastoiditis, sinusitis, head injury, this is not meant to be an all-inclusive list. EKG interpreted by me (3pts min.). @ -As above X-rays interpreted by me (1pt min.). @ -None done CT interpreted by me (1pt min.). @ -None done U/S interpreted by me (1pt. min.). @ -None done What testing was considered but not performed or refused? (CT, X-rays, U/S, labs)? Why? @ -None What meds were considered but not given or refused? Why? @ -None Did you discuss the management of the patient with other professionals (professionals i.e. LEONARD Campos, ANIMAL TREATMENT INVESTIGATOR, lab, RT, psych nurse, long term care social worker, district court bailiff, teacher, disciplinary hearing officer, wrapper caser)? Give summary @ -No Was smoking cessation discussed for >3mins.? @ -No Was critical care preformed (if so, how long)? @ -No Were there social determinants of health that impacted care today? How? (Homelessness, low income, unemployed, alcoholism, drug addiction, transportation, low edu. Level, literacy, decrease access to med. care, longterm, rehab)? @ -No Was there de-escalation of care discussed even if they declined (Discuss DNR or withdrawal of care, Hospice)? DNR status @ -No What co-morbidities impacted this encounter? (DM, HTN, Smoking, COPD, CAD, Cancer, CVA, ARF, Chemo, Hep., AIDS, mental health diagnosis, sleep apnea, morbid obesity)? @ -None Was patient admitted / discharged? Hospital course, mention meds given and route, prescriptions, significant lab abnormalities, going to OR and other pertinent info. @ -22-year-old with migraine history presenting with migraine. No alarming symptoms. No neurological deficit. Pain improved after migraine cocktail. Patient encouraged to take her migraine medications and follow-up with a neurologist. Undiagnosed new problem with uncertain prognosis? @ -No Drug Therapy requiring intensive monitoring for toxicity (Heparin, Nitro, Insulin, Cardizem)? @ -No Were any procedures done? @ -No Diagnosis/symptom? @ -migraine Acute, or Chronic, or Acute on Chronic? @ -acute Uncomplicated (without systemic symptoms) or Complicated (systemic symptoms)? @ -uncomplicated Side effects of treatment? @ -No Exacerbation, Progression, or Severe Exacerbation? @ -No Poses a threat to life or bodily function? How? (Chest pain, [place], [place], pneumonia, PE, COPD, DKA, ARF, appy, cholecystitis, CVA, Diverticulitis, Homicidal, Suicidal, threat to staff... and all critical care pts) @ -No Dr. Rajan is my attending Disposition Clinical Impression: Migraine Disposition: HOME SELF-CARE Condition: Good Instructions (If sedation given, give patient instructions): Migraine Headache (ED) Additional Instructions: Take medication as directed. Please follow-up with neurologist in 1-2 days. Return to the emergency department if you experience new, concerning, or worsening symptoms. Prescriptions: Ibuprofen [Motrin] 600 mg PO Q6HR PRN #30 tab PRN Reason: Pain Is patient prescribed a controlled substance at d/c from ED?: No Referrals: Sana Salmon [Primary Care Provider] - 1-2 days
[2023-01-23 04:50] VITALS: BP 103/63; PULSE 87
== END 2023-01-23 04:45 | disposition home or self-care (01) ==
LOC: EC 00:36
DX: G43.909 Migraine, unspecified, not intractable, without status migrainosus (principal); J45.909 Unspecified asthma, uncomplicated; F32.A Depression, unspecified; F41.9 Anxiety disorder, unspecified; F90.9 Attention-deficit hyperactivity disorder, unspecified type; F17.290 Nicotine dependence, other tobacco product, uncomplicated; Z79.899 Other long term (current) drug therapy
CPT/HCPCS: 99283; 96374; 96375 ×3; 96361; J1200; J1100; J2765; J1885

== ENCOUNTER 2023-02-03 03:06 | Emergency (ER) | payer OTHER ==
[2023-02-03 03:30] VITALS: BP 129/84; PULSE 99; RESP 18; TEMP 98
[2023-02-03] MEDS ORDERED: ORPHENADRINE 30 MG/ML 2 ML VIAL IM STA (03:38)
--- NOTE | 2023-02-03 03:40 | ED ---
General Adult HPI - General Chief complaint: Extremity Injury, Upper Stated complaint: Shoulder pain Time Seen by Provider: 02/03/23 03:23 Source: patient Mode of arrival: ambulatory Limitations: no limitations - History of Present Illness Initial comments: 22-year-old female presenting with chief complaint of left shoulder pain. Pain is been ongoing for about a week. No injury or trauma. Patient states that she woke up on the arm after sleeping on it wrong with pain to the bulk of the muscle. No shoulder joint pain. She has full range of motion. No numbness or tingling. No chest pain or difficulty breathing. - Related Data Home Medications Medication Instructions Recorded Confirmed Pnv No.95/Ferrous Fum/Folic AC 1 tab PO DAILY 01/19/21 01/17/22 [ Multivitamin Tablet] Albuterol Sulfate [Proair Hfa] 2 puff INHALATION RT-Q6H PRN 01/17/22 01/17/22 Cetirizine HCl 10 mg PO HS 01/17/22 01/17/22 Cholecalciferol [Vitamin D3 (25 50 mcg PO DAILY 01/17/22 01/17/22 Mcg = 1000 Iu)] Magnesium Oxide [Mag-Ox] 400 mg PO DAILY 01/17/22 01/17/22 Methylphenidate HCl [Concerta] 72 mg PO DAILY 01/17/22 01/17/22 Montelukast [Singulair] 10 mg PO DAILY 01/17/22 01/17/22 Sertraline [Zoloft] 25 mg PO DAILY 01/17/22 01/17/22 medroxyPROGESTERone [Depo-Provera] 150 mg IM Q84D 01/17/22 01/17/22 Previous Rx's Medication Instructions Recorded Acetaminophen Tab [Tylenol Tab] 1,000 mg PO Q6HR PRN #30 tablet 01/18/22 Ibuprofen [Motrin] 600 mg PO Q8HR PRN #30 tab 01/18/22 Simethicone [Gas-X] 125 mg PO AC-TID PRN #20 capsule 01/18/22 Ondansetron Odt [Zofran Odt] 4 mg PO Q8HR PRN #9 tab 01/19/22 Amoxic-Pot Clav 875-125Mg 1 tab PO Q12HR 5 Days #10 tab 12/03/22 [Augmentin 875-125] Ketorolac [Toradol] 10 mg PO Q6HR PRN #15 tab 12/03/22 Ibuprofen [Motrin] 600 mg PO Q6HR PRN #30 tab 01/23/23 Cyclobenzaprine [Flexeril] 10 mg PO TID PRN #15 tab 02/03/23 Allergies Allergy/AdvReac Type Severity Reaction Status Date / Time No Known Allergies Allergy Verified 02/03/23 03:19 Review of Systems ROS Statement: Those systems with pertinent positive or pertinent negative responses have been documented in the HPI. ROS Other: All systems not noted in ROS Statement are negative. Past Medical History Past Medical History: Asthma Additional Past Medical History / Comment(s): Scoliosis, tendonitis in L hand, migraines History of Any Multi-Drug Resistant Organisms: None Reported Past Surgical History: Section, Cholecystectomy Additional Past Surgical History / Comment(s): c section jan 2021. Cholecystectomy 2021 Past Anesthesia/Blood Transfusion Reactions: No Reported Reaction Past Psychological History: ADD/ADHD, Anxiety, Depression, Panic Disorder, PTSD Smoking Status: Former smoker Past Alcohol Use History: None Reported Past Drug Use History: None Reported - Past Family History Mother Family Medical History: Osteoarthritis (OA) General Exam Limitations: no limitations General appearance: alert, in no apparent distress Head exam: Present: atraumatic, normocephalic, normal inspection Eye exam: Present: normal appearance, EOMI Neck exam: Present: normal inspection, full ROM Respiratory exam: Absent: respiratory distress Left Shoulder Exam: Present: normal inspection, full ROM, tenderness (No tenderness over the joint, some tenderness and tension over the trapezius). Absent: swelling, deformity, erythema Neurological exam: Present: alert, oriented X3 Psychiatric exam: Present: normal affect, normal mood Skin exam: Present: warm, dry, intact, normal color. Absent: rash Course Vital Signs 02/03/23 03:18 Temperature 98 F Pulse Rate 99 Respiratory 18 Rate Blood Pressure 129/84 O2 Sat by Pulse 98 Oximetry Medical Decision Making - Medical Decision Making Was pt. sent in by a medical professional or institution (, PA, RESTAURANT INSPECTOR, urgent care, hospital, or care home...) When possible be specific @ -No Did you speak to anyone other than the patient for history (EMS, parent, family, police, friend...)? What history was obtained from this source @ -No Did you review nursing and triage notes (agree or disagree)? Why? @ -I reviewed and agree with nursing and triage notes Were old charts reviewed (outside hosp., previous admission, EMS record, old EKG, old radiological studies, urgent care reports/EKG's, care home records)? Report findings @ -No old charts were reviewed Differential Diagnosis (chest pain, altered mental status, abdominal pain women, abdominal pain men, vaginal bleeding, weakness, fever, dyspnea, syncope, headache, dizziness, GI bleed, back pain, seizure, CVA, palpatations, mental health, musculoskeletal)? @ -Differential Musculoskeletal Muscular strain, contusion, ligament sprain, fracture, arthritis, septic arthritis, bursitis, cellulitis, muscle spasm, nerve compression, DVT, arterial occlusion, herpes zoster, electrolyte abnormality, tumor.... This is not meant t o be in all inclusive list EKG interpreted by me (3pts min.). @ -As above X-rays interpreted by me (1pt min.). @ -None done CT interpreted by me (1pt min.). @ -None done U/S interpreted by me (1pt. min.). @ -None done What testing was considered but not performed or refused? (CT, X-rays, U/S, labs)? Why? @ -None What meds were considered but not given or refused? Why? @ -None Did you discuss the management of the patient with other professionals (professionals i.e. , PA, RESTAURANT INSPECTOR, lab, RT, psych nurse, psychotherapist social worker, internal audit director, teacher, officer lieutenant, dependency case manager)? Give summary @ -No Was smoking cessation discussed for >3mins.? @ -No Was critical care preformed (if so, how long)? @ -No Were there social determinants of health that impacted care today? How? (Homelessness, low income, unemployed, alcoholism, drug addiction, transporta tion, low edu. Level, literacy, decrease access to med. care, shelter, rehab)? @ -No Was there de-escalation of care discussed even if they declined (Discuss DNR or withdrawal of care, Hospice)? DNR status @ -No What co-morbidities impacted this encounter? (DM, HTN, Smoking, COPD, CAD, Cancer, CVA, ARF, Chemo, Hep., AIDS, mental health diagnosis, sleep apnea, morbid obesity)? @ -None Was patient admitted / discharged? Hospital course, mention meds given and route, prescriptions, significant lab abnormalities, going to OR and other pertinent info. @ -22-year-old female presenting with chief complaint of shoulder pain. No injury or trauma. Full range of motion and no joint tenderness. There is muscle tension noted over the trapezius. Patient is given a dose of Norflex and send prescription for cyclobenzaprine at home. Educated on supportive management. Follow-up with PCP. Report back to ER with any new or worsening symptoms. Discussed return parameters and answered all questions. Patient conveyed verbal understanding and agreed to the plan. I discussed this case in detail with my attending Dr. Fraga Undiagnosed new problem with uncertain prognosis? @ -No Drug Therapy requiring intensive monitoring for toxicity (Heparin, Nitro, Insulin, Cardizem)? @ -No Were any procedures done? @ -No Diagnosis/symptom? @ -Muscle spasm Acute, or Chronic, or Acute on Chronic? @ -Acute Uncomplicated (without systemic symptoms) or Complicated (systemic symptoms)? @ -Uncomplicated Side effects of treatment? @ -No Exacerbation, Progression, or Severe Exacerbation? @ -No Poses a threat to life or bodily function? How? (Chest pain, [place], [place], pneumonia, PE, COPD, DKA, ARF, appy, cholecystitis, CVA, Diverticulitis, Homicidal, Suicidal, threat to staff... and all critical care pts) @ -No Disposition Clinical Impression: Muscle spasm Disposition: HOME SELF-CARE Condition: Good Instructions (If sedation given, give patient instructions): Muscle Spasm (ED) Additional Instructions: Follow-up with PCP. Report back to ER with any new or worsening symptoms. Take Motrin and Tylenol as needed for pain control. Take cyclobenzaprine as prescribed, do not take before driving or operating heavy machinery as it may cause drowsiness Prescriptions: Cyclobenzaprine [Flexeril] 10 mg PO TID PRN #15 tab PRN Reason: Spasms Is patient prescribed a controlled substance at d/c from ED?: No Referrals: Sana Salmon [Primary Care Provider] - 1-2 days Time of Disposition: 03:40
== END 2023-02-03 04:07 | disposition home or self-care (01) ==
LOC: EC 03:06
DX: M62.838 Other muscle spasm (principal); J45.909 Unspecified asthma, uncomplicated; F41.9 Anxiety disorder, unspecified; F32.A Depression, unspecified; F90.9 Attention-deficit hyperactivity disorder, unspecified type; Z87.891 Personal history of nicotine dependence; Z79.899 Other long term (current) drug therapy
CPT/HCPCS: 99282; 96372; J2360

== ENCOUNTER → 2023-04-15 | Outpatient (CLI) | payer OTHER ==
--- NOTE | 2023-04-17 08:26 | US ---
EXAMINATION TYPE: Transabdominal DATE OF EXAM: 04/15/2023 2:40 PM COMPARISON: NONE CLINICAL INDICATION: Female, 22 years old with history of Z36.89 ENCOUNTER FOR OTHER SPECIFIED ANTENA BRADEN SCR; Dates. EXAM PERFORMED: Transabdominal (TA) EXAM MEASUREMENTS: GESTATIONAL AGE / DATING Physician Established: Not yet established Dates by LMP: (10 weeks/1 days) EDC: 11/10/2023 Dates by First Scan: No previous this is first scan Dates by Current Scan for: (/ days) EDC: 11/10/2023 MATERNAL ANATOMY Uterus: 12.8 x 8.9 x 6.2 cm Right Ovary: Not visualized at time of scan Left Ovary: 3.6 x 3.1 x 2.2 cm Post CDS / Adnexa: no free fluid Presence of free fluid: no Presence of corpus luteal cyst: left ovary = 2.5 x 2.3 x 1.8 cm Presence of subchorionic bleed: No free fluid GESTATION / SURVEY CRL: 3.2 cm (10 weeks/1 days) MSD: seen, not measured Yolk Sac (normal less than 6mm): 4.0 mm Heart Rate: 158 bpm Rhythm: Normal IUP: Viable IUP Age Appropriate Anatomy Limbs: Visualized Calvarium: Visualized Date of LMP: 02/03/2023, Beta HcG (if available): Not available at this time Viable live single IUP. IMPRESSION: 1. Single intrauterine gestation estimated at 10 weeks 1 day gestation based on crown-rump length. Ca rdiac activity measures 158 bpm.
== END | disposition home or self-care (01) ==
LOC: RADUSWWP 14:10
PROVIDERS: ATTEND Obstetrics & Gynecology
DX: Z36.89 Encounter for other specified antenatal screening (principal); Z3A.10 10 weeks gestation of pregnancy
CPT/HCPCS: 76801

== ENCOUNTER → 2023-06-17 | Outpatient (CLI) | payer OTHER ==
--- NOTE | 2023-06-18 14:38 | US ---
EXAMINATION TYPE: US OB anatomy transabd DATE OF EXAM: 06/17/2023 COMPARISON: US 04/15/2023 CLINICAL INDICATION: Female, 22 years old with history of O36.62X0 MATERNAL CARE FOR EXCESS YULIANA WTH; . Hx 1 C section. TECHNIQUE: Transabdominal (TA) EXAM MEASUREMENTS: GESTATIONAL AGE / DATING Physician Established: (19 weeks/ day) EDC: 11/10/2023 Dates by LMP: ( weeks/ day) EDC: 11/10/2023 Dates by First Scan: ( weeks/ day) EDC: 11/10/2023 Dates by Current Scan for: ( weeks/2 days) EDC: 11/09/2023 SURVEY IUP: Single PLACENTA: Anterior PREVIA: No previa SAMANTHA: 16.6 cm Normal CERVICAL LENGTH (transabdominal: norm > 3.0cm): 3.4 cm BIOMETRY PRESENTATION: Variable, vertex at end of exam. BPD: 4.4 cm 19 weeks / 3 days HC: 15.9 cm 18 weeks / 6 days AC: 14.1 cm 19 weeks / 4 days FL: 2.9 cm 19 weeks / 0 days ESTIMATED WEIGHT IN GRAMS: 278 grams ESTIMATED WEIGHT IN LBS/OZ: 0 lbs. 10 oz. WEIGHT PERCENTAGE BASED ON ESTABLISHED DATE: 47 % HC/AC: 1.13 Normal FL/AC: 21% HEART RATE: 143 bpm RHYTHM: Normal ANATOMY SEEN (within normal limits): Lateral Vent (< 1 cm) 0.70 cm Cisterna Magna (< 1.1 cm) 0.53 cm Nuchal Fold (< 0.6 cm) 0.36 cm Cerebellum (varies with age) 1.83 cm Choroid Plexus (bilateral) Midline Falx Stomach Situs Diaphragm Bladder Cord Insert Three Vessel Cord Legs (bilateral) ANATOMY SEEN (does not appear within normal limits): Four Chamber Heart- 2 mm echogenic intracardiac focus within the left ventricle ANATOMY NOT SEEN ADEQUATELY: Cavus Septi Pellucidi Longitudinal Spine Transverse Spine Nose / Lips Kidneys (bilateral) Outflow tracts: LVOT/RVOT Arms (bilateral radius/ulna) BASIN CLEANER NOTES: Patient is scheduled for an OB call back appointment for structures not seen due t o constant movement and position. IMPRESSION: 1. Single live intrauterine with estimated gestational age of 19 weeks 1 day by LMP. Curren t ultrasound biometry is concordant at 19 weeks 2 days placing the child at the 47th percentile for w eight. 2. A number of structures on the survey could not be adequately visualized due to constant feta l movement and position. The patient is scheduled for a callback appointment for missed anatomy. 3. Echogenic intracardiac focus. Follow-up as clinically indicated. In some cases, this may be a soft marker for aneuploidy.
== END | disposition home or self-care (01) ==
LOC: RADUSWWP 14:38
PROVIDERS: ATTEND Obstetrics & Gynecology
DX: Z36.89 Encounter for other specified antenatal screening (principal); O36.62X0 Maternal care for excessive fetal growth, second trimester, not applicable or unspecified; Z3A.19 19 weeks gestation of pregnancy
CPT/HCPCS: 76811

== ENCOUNTER → 2023-06-20 | Outpatient (CLI) | payer OTHER ==
--- NOTE | 2023-06-21 11:19 | US ---
EXAMINATION TYPE: US OB Call Back DATE OF EXAM: 06/20/2023 COMPARISON: 06/17/2023 CLINICAL INDICATION: Female, 22 years old with history of O36.62X0 MATERNAL CARE; GESTATIONAL AGE / DATING Dates by Initial Survey Scan: (19 weeks/5 days) EDC: 11/09/23 HEART RATE: 142 bpm RHYTHM: Normal ANATOMY SEEN (second anatomic survey look): Cavus Septi Pellucidi Longitudinal Spine Transverse Spine Arms (bilateral): radius/ulna x2 ANATOMY SEEN (but with abnormality): Four Chamber Heart: 0.3cm echogenic focus left ventricle as on prior ANATOMY WHICH REMAINS SUBOPTIMALLY VISUALIZED: Outflow tracts:? LVOT/RVOT Nose / Lips: IMPRESSION: 1. The outflow tracts and nose/lips remain suboptimally visualized. 2. The CSP, spine, and arms appear normal. 3. Persistent 3 mm intracardiac echogenic focus. Consider genetics consultation.
== END | disposition home or self-care (01) ==
LOC: RADUSWWP 13:42
PROVIDERS: ATTEND Obstetrics & Gynecology
DX: Z53.9 Procedure and treatment not carried out, unspecified reason (principal)

== ENCOUNTER → 2023-07-24 | Outpatient (CLI) | payer OTHER ==
[2023-07-24 16:17] LABS: HCT 33.9 % (37.2-46.3); MCH 29.1 pg (27.0-32.0); MCHC 32.4 g/dL (32.0-37.0); MCV 89.7 FL (80.0-97.0); Mean Platelet Volume 9.8 FL (9.5-12.2); NRBC Per 100 WBC 0 X 10*3/uL (0.00-0.01); Platelet Count 369 X 10*3/uL (140-440); RBC 3.78 X 10*6/uL (4.10-5.20); RDW 12.8 % (11.5-14.5)
== END | disposition home or self-care (01) ==
LOC: LABWHC1 11:14
PROVIDERS: ATTEND Obstetrics & Gynecology
DX: Z34.82 Encounter for supervision of other normal pregnancy, second trimester (principal)
CPT/HCPCS: 36415; 82950; 85027; 86850; 86900; 86901

== ENCOUNTER → 2023-08-21 | Outpatient (CLI) | payer OTHER | END | disposition home or self-care (01) | LOC: LABWHC1 11:30 | PROVIDERS: ATTEND Obstetrics & Gynecology | DX: Z34.83 Encounter for supervision of other normal pregnancy, third trimester (principal); Z3A.00 Weeks of gestation of pregnancy not specified | CPT/HCPCS: 86850; 86900; 86901 ==

== ENCOUNTER 2023-10-13 20:54 | Outpatient (CLI) | payer OTHER ==
[2023-10-13 22:03] LABS: Amorphous Sediment,Urine Rare /hpf; Appearance,Urine Cloudy (Clear); Bacteria,Urine Moderate /hpf; Bilirubin,Urine Negative (Negative); Blood,Urine Negative (Negative); Color,Urine Colorless; Glucose,Urine (UA) Negative (Negative); Ketones,Urine Negative (Negative); Leukocyte Esterase,Urine Large (Negative); Mucus,Urine Rare /hpf; Nitrite,Urine Negative (Negative); Protein,Urine Negative (Negative); RBC,Urine 7 /hpf (0-5); Specific Gravity,Urine 1.008 (1.001-1.035); Squamous Epithelial Cell,Urine 10 /hpf (0-4); Urobilinogen,Urine <2.0 mg/dL (<2.0); WBC,Urine 9 /hpf (0-5)
[2023-10-13 23:16] VITALS: BP 134/79; PULSE 104; RESP 17; TEMP 97.6
--- NOTE | 2023-10-14 05:39 | P.MSEPDOC ---
Presenting Problems - Arrival Data Date of Arrival on Unit: 10/13/23 Time of Arrival on Unit: 20:54 Mode of Transport: Ambulatory - Complaint OB-Reason for Admission/Chief Complaint: Pain Comment: pt presents to triage for pelvic and rectal pressure Medical History - Information : 2 Para: 1 Term: 1 : 0 Abortions: Spontaneous or Elective: 0 Number of Living Children: 1 - Gestational Age Gestational Age by YECENIA (wks/days): 36 Weeks and 0 Days Review of Systems - Review of Systems Constitutional: No problems Breast: No problems ENT: No problems Cardiovascular: No problems Respiratory: No problems Gastrointestinal: No problems Genitourinary: No problems Musculoskeletal: No problems Neurological: No problems Skin: No problems Vital Signs - Temperature Temperature: 97.6 F Temperature Source: Temporal Artery Scan - Pulse Right Brachial Pulse Rate: 104 Pulse Assessment Method: Automatic Cuff - Respirations Respiratory Rate: 17 Oxygen Delivery Method: Room Air O2 Sat by Pulse Oximetry: 97 - Blood Pressure Right Arm Blood Pressure: 134/79 Blood Pressure Mean: 97 Blood Pressure Source: Automatic Cuff Medical Screen Scoring - Cervical Exam Dilation (cm): 0 - Uterine Contractions Frequency From (mins): 3 Frequency To (mins): 5 Duration From (seconds): 40 Duration To (seconds): 60 Intensity: Mild Resting: Soft to palpation - Assessment - Baby A Baseline FHR: 140 Heart Rate - NICHD Category: Category I (Normal) NST: Reactive Physician Notification - Physician Notified Physician Notified Date: 10/13/23 Physician Notified Time: 22:35 Physician: Arielle Hampton New Order Received: Yes - Notification Comment Comment: reactive nst, cervical exam closed/thick/high, ua and urine culture sent, pt has appt on sat in office with Dr. Shin Maternal Triage Index - Maternal Triage Index Presenting for scheduled procedure w/no complaint: No - Stat/Priority 1 Stat Priority 1: No - Urgent/Priority 2 Urgent Priority 2: Yes Provider Notified: Arielle Hampton Provider Notified Time: 22:35 Criteria Met for Priority 2: pt presents to triage for pelvic and rectal pressure Disposition - Disposition OB Disposition: Triage, Written follow up instructions reviewed Discharge Date: 10/13/23 Discharge Time: 22:45 I agree with the RN Medical Screening Exam: Yes Case reviewed; plan agreed upon as documented in EMR&OBIX.: Yes Diagnosis: FALSE LABOR BEFORE 37 COMPLETED WEEKS OF GEST, THIRD TRI
== END 2023-10-13 22:45 | disposition home or self-care (01) ==
LOC: FBPOP 20:54
PROVIDERS: ATTEND Obstetrics & Gynecology
DX: O47.03 False labor before 37 completed weeks of gestation, third trimester (principal); Z3A.36 36 weeks gestation of pregnancy
CPT/HCPCS: 59025; 81001; 87086; G0463; 99213

== ENCOUNTER 2023-10-21 18:46 | Outpatient (CLI) | payer OTHER ==
[2023-10-21] MEDS: LACTATED RINGERS 1,000 ML IV ONE (20:40)
[2023-10-21 21:13] LABS: Appearance,Urine Clear (Clear); Bacteria,Urine Rare /hpf; Bilirubin,Urine Negative (Negative); Blood,Urine Negative (Negative); Color,Urine Light Yellow; Glucose,Urine (UA) Negative (Negative); Leukocyte Esterase,Urine Moderate (Negative); Mucus,Urine Occasional /hpf; Nitrite,Urine Negative (Negative); PH, Urine 6.5 (5.0-8.0); Protein,Urine Negative (Negative); RBC,Urine 1 /hpf (0-5); Specific Gravity,Urine 1.015 (1.001-1.035); Squamous Epithelial Cell,Urine 2 /hpf (0-4); Urobilinogen,Urine <2.0 mg/dL (<2.0); WBC,Urine 1 /hpf (0-5)
[2023-10-21 21:49] LABS: Ketones,Urine 2+ (Negative)
[2023-10-21 23:31] VITALS: BP 123/70; PULSE 111; RESP 16; TEMP 98
--- NOTE | 2023-11-02 11:50 | P.MSEPDOC ---
Presenting Problems - Arrival Data Date of Arrival on Unit: 10/21/23 Time of Arrival on Unit: 18:46 Mode of Transport: Ambulatory - Complaint OB-Reason for Admission/Chief Complaint: Possible Onset of Labor Comment: Right sided abdominal pain started at 1820 Medical History - Information : 2 Para: 1 Term: 1 : 0 Abortions: Spontaneous or Elective: 0 Number of Living Children: 1 - Gestational Age Gestational Age by YECENIA (wks/days): 37 Weeks and 1 Days - History Complications: Prior Review of Systems - Review of Systems Constitutional: No problems Breast: No problems ENT: No problems Cardiovascular: No problems Respiratory: No problems Gastrointestinal: No problems Genitourinary: No problems Musculoskeletal: No problems Neurological: No problems Skin: No problems Vital Signs - Temperature Temperature: 98.0 F Temperature Source: Oral - Pulse Right Sitting Pulse Rate: 111 Pulse Assessment Method: Automatic Cuff - Respirations Respiratory Rate: 16 Oxygen Delivery Method: Room Air O2 Sat by Pulse Oximetry: 98 - Blood Pressure Right Arm Sitting Blood Pressure: 123/70 Blood Pressure Mean: 87 Blood Pressure Source: Automatic Cuff Medical Screen Scoring - Cervical Exam Dilation (cm): 0 Station: -3 Membranes: Intact - Uterine Contractions Frequency From (mins): 2 Frequency To (mins): 4 Duration From (seconds): 50 Duration To (seconds): 60 Intensity: Mild Resting: Soft to palpation - Assessment - Baby A Baseline FHR: 135 Heart Rate - NICHD Category: Category I (Normal) NST: Reactive Physician Notification - Physician Notified Physician Notified Date: 10/21/23 Physician Notified Time: 19:25 Physician: Migue Gutierres New Order Received: Yes - Notification Comment Comment: 1924 Recheck in an hour. 2007 order to start IV, and send U/A. 2153 order to infuse 3rd bag of LR and then D/C home. Maternal Triage Index - Maternal Triage Index Presenting for scheduled procedure w/no complaint: No - Stat/Priority 1 Stat Priority 1: No - Urgent/Priority 2 Urgent Priority 2: No - Prompt/Priority 3 Prompt Priority 3: No - Non-Urgent/Priority 4 Non-Urgent Priority 4: Yes Criteria Met for Priority 4: pt arrived 184 with R side abd pain started at 182, Dr Gutierres called at 1924. Disposition - Disposition OB Disposition: Discharge to home, Written follow up instructions reviewed Discharge Date: 10/21/23 Discharge Time: 22:57 I agree with the RN Medical Screening Exam: Yes Physician's MSE Comment: I have neither seen nor examined the patient. Case reviewed; plan agreed upon as documented in EMR&OBIX.: Yes Diagnosis: RELATED CONDITIONS, UNSPECIFIED, THIRD TRIMESTER
== END 2023-10-21 22:45 | disposition home or self-care (01) ==
LOC: FBPOP 18:46
PROVIDERS: ATTEND Obstetrics & Gynecology
DX: O47.1 False labor at or after 37 completed weeks of gestation (principal); O26.893 Other specified pregnancy related conditions, third trimester; R10.9 Unspecified abdominal pain; Z3A.37 37 weeks gestation of pregnancy
CPT/HCPCS: 59025; 96360; 96361; 81001; G0463; 36415; 99214

== ENCOUNTER 2023-10-31 19:57 | Outpatient (CLI) | payer OTHER ==
[2023-10-31] MEDS: LACTATED RINGERS 1,000 ML IV ONE (21:08)
[2023-10-31 21:20] LABS: Appearance,Urine Clear (Clear); Bacteria,Urine Rare /hpf; Bilirubin,Urine Negative (Negative); Blood,Urine Negative (Negative); Color,Urine Light Yellow; Glucose,Urine (UA) Negative (Negative); Ketones,Urine Negative (Negative); Leukocyte Esterase,Urine Moderate (Negative); Mucus,Urine Rare /hpf; Nitrite,Urine Negative (Negative); Protein,Urine Negative (Negative); RBC,Urine <1 /hpf (0-5); Specific Gravity,Urine 1.014 (1.001-1.035); Squamous Epithelial Cell,Urine 2 /hpf (0-4); Urobilinogen,Urine <2.0 mg/dL (<2.0); WBC,Urine 2 /hpf (0-5)
[2023-10-31] MEDS: LACTATED RINGERS 1,000 ML IV SCH (21:30)
[2023-10-31 22:28] VITALS: BP 125/73; PULSE 102; RESP 16; TEMP 98.6
--- NOTE | 2023-11-02 11:53 | P.MSEPDOC ---
Presenting Problems - Arrival Data Date of Arrival on Unit: 10/31/23 Time of Arrival on Unit: 19:57 Mode of Transport: Ambulatory - Complaint OB-Reason for Admission/Chief Complaint: Possible Onset of Labor Comment: contractions and back pain since 1829 Medical History - Information : 2 Para: 1 Term: 1 : 0 Abortions: Spontaneous or Elective: 0 Number of Living Children: 1 - Gestational Age Gestational Age by YECENIA (wks/days): 38 Weeks and 4 Days - History Complications: Prior Review of Systems - Review of Systems Constitutional: No problems Breast: No problems ENT: No problems Cardiovascular: No problems Respiratory: No problems Gastrointestinal: No problems Genitourinary: No problems Musculoskeletal: No problems Neurological: No problems Skin: No problems Vital Signs - Temperature Temperature: 98.6 F Temperature Source: Oral - Pulse Right Sitting Pulse Rate: 102 Pulse Assessment Method: Automatic Cuff - Respirations Respiratory Rate: 16 Oxygen Delivery Method: Room Air O2 Sat by Pulse Oximetry: 98 - Blood Pressure Right Arm Sitting Blood Pressure: 125/73 Blood Pressure Mean: 90 Blood Pressure Source: Automatic Cuff Medical Screen Scoring - Cervical Exam Dilation (cm): 0 Station: -3 Membranes: Intact - Uterine Contractions Frequency From (mins): 4 Frequency To (mins): 5 Duration From (seconds): 50 Duration To (seconds): 71 Intensity: Mild Resting: Soft to palpation - Assessment - Baby A Baseline FHR: 140 Heart Rate - NICHD Category: Category I (Normal) NST: Reactive Physician Notification - Physician Notified Physician Notified Date: 10/31/23 Physician Notified Time: 20:40 Physician: Migue Gutierres Order Received: Yes - Notification Comment Comment: Cervix closed after 2 hours. 2 liters of fluid given. Pt will return Tu(11/04) for sced R C/S@noon Maternal Triage Index - Maternal Triage Index Presenting for scheduled procedure w/no complaint: No - Stat/Priority 1 Stat Priority 1: No - Urgent/Priority 2 Urgent Priority 2: No - Prompt/Priority 3 Prompt Priority 3: No - Non-Urgent/Priority 4 Non-Urgent Priority 4: Yes Criteria Met for Priority 4: back pain since 1829. Disposition - Disposition OB Disposition: Discharge to home, Written follow up instructions reviewed Discharge Date: 10/31/23 Discharge Time: 22:20 I agree with the RN Medical Screening Exam: Yes Physician's MSE Comment: I have neither seen nor examined the patient. Case reviewed; plan agreed upon as documented in EMR&OBIX.: Yes Diagnosis: RELATED CONDITIONS, UNSPECIFIED, THIRD TRIMESTER
== END 2023-10-31 22:20 | disposition home or self-care (01) ==
LOC: FBPOP 19:57
PROVIDERS: ATTEND Obstetrics & Gynecology
DX: O47.1 False labor at or after 37 completed weeks of gestation (principal); Z3A.38 38 weeks gestation of pregnancy
CPT/HCPCS: 59025; 96360; 96361; 36415; 81001; G0463; 99214

== ENCOUNTER 2023-11-05 06:50 | Inpatient (IN) | payer OTHER ==
[2023-11-04 12:58] VITALS: BMI 38.2
[2023-11-05] MEDS ORDERED: METHYLERGONOVINE 0.2 MG/ML 1 ML AMP IM PRN (07:24)
[2023-11-05] MEDS ORDERED: CARBOPROST TROMETHAMINE 250 MCG/ML 1 ML AMP IM PRN (07:24)
[2023-11-05] MEDS ORDERED: OXYTOCIN 10 UNIT/ML 1 ML VIAL IM PRN (07:24)
[2023-11-05] MEDS ORDERED: TRANEXAMIC 1,000 MG/100ML-NACL 1,000 MG in EMPTY BAG 1 BAG IV PRN (07:24)
[2023-11-05] MEDS ORDERED: miSOPROStoL 200 MCG TAB PO PRN (07:24)
[2023-11-05] MEDS: CITRIC ACID-SODIUM CITRATE 15 ML CUP PO ONE (07:38)
[2023-11-05] MEDS: LACTATED RINGERS 1,000 ML BAG IV STA (07:40)
[2023-11-05 07:43] LABS: Basophils % (A) 0 %; Eosinophils # (A) 0.1 k/uL (0-0.7); Eosinophils % (A) 1 %; HCT 36.4 % (34.0-46.0); HGB 12.7 gm/dL (11.4-16.0); Lymphocytes # (A) 2.3 k/uL (1.0-4.8); Lymphocytes % (A) 21 %; MCH 29.3 pg (25.0-35.0); MCHC 34.8 g/dL (31.0-37.0); MCV 84.2 fL (80.0-100.0); Mean Platelet Volume 7.8; Monocytes # (A) 0.7 k/uL (0-1.0); Monocytes % (A) 6 %; Neutrophils % (A) 70 %; Platelet Count 335 k/uL (150-450); RBC 4.33 m/uL (3.80-5.40); RDW 13.2 % (11.5-15.5); WBC 11.4 k/uL (3.8-10.6)
[2023-11-05] MEDS ORDERED: ONDANSETRON 4 MG/2 ML VIAL ONE (07:58)
[2023-11-05] MEDS ORDERED: MORPHINE SULFATE (PF) 0.3 MG/0.3 ML SYR ONE (07:58)
[2023-11-05] MEDS ORDERED: KETOROLAC 15 MG/ML 1 ML VIAL ONE (07:58)
[2023-11-05] MEDS ORDERED: PHENYLEPHRINE-0.9% NACL SYG 1,000 MCG/10 ML SYRINGE ONE (07:58)
[2023-11-05] MEDS ORDERED: ZOLPIDEM 5 MG TAB PO PRN (08:52)
[2023-11-05] MEDS ORDERED: NALOXONE 0.4 MG/ML 1 ML VIAL IV PRN (08:52)
[2023-11-05] MEDS ORDERED: LANOLIN CREAM 1 GM TUBE TOPICAL PRN (08:52)
[2023-11-05] MEDS ORDERED: diphenhydrAMINE 50 MG CAP PO PRN (08:52)
[2023-11-05] MEDS ORDERED: diphenhydrAMINE 25 MG CAP PO PRN (08:52)
[2023-11-05] MEDS ORDERED: SIMETHICONE 80 MG CHEWABLE PO PRN (08:52)
[2023-11-05] MEDS ORDERED: diphenhydrAMINE 50 MG/ML 1 ML VIAL IVP PRN (08:52)
[2023-11-05] MEDS ORDERED: METOCLOPRAMIDE 5 MG/ML 2 ML VIAL IVP PRN (08:52)
--- NOTE | 2023-11-05 08:57 | P.HPOB ---
History of Present Illness H&P Date: 11/05/23 Chief Complaint: contractions. previous 23Old presents at 39 weeks and 2 days complaining of contractions. Her cervix was closed but she was hurting and [place] every 2-3 minutes. section was scheduled for later today she will undergo section with tubal ligation now. Review of Systems All systems: negative Constitutional: Denies chills, Denies fever Eyes: denies blurred vision, denies pain Ears, nose, mouth and throat: Denies headache, Denies sore throat Cardiovascular: Denies chest pain, Denies shortness of breath Respiratory: Denies cough Gastrointestinal: Denies abdominal pain, Denies diarrhea, Denies nausea, Denies vomiting Genitourinary: Denies dysuria, Denies hematuria Musculoskeletal: Denies myalgias Integumentary: Denies pruritus, Denies rash Neurological: Denies numbness, Denies weakness Psychiatric: Denies anxiety, Denies depression Endocrine: Denies fatigue, Denies weight change Past Medical History Past Medical History: Asthma Additional Past Medical History / Comment(s): Scoliosis, tendonitis in L hand, migraines History of Any Multi-Drug Resistant Organisms: None Reported Past Surgical History: Section, Cholecystectomy Additional Past Surgical History / Comment(s): c section jan 2021. Cholecystectomy 2021 Past Anesthesia/Blood Transfusion Reactions: No Reported Reaction Past Psychological History: ADD/ADHD, Anxiety, Depression, Panic Disorder, PTSD Smoking Status: Former smoker Past Alcohol Use History: None Reported Additional Past Alcohol Use History / Comment(s): QUIT SMOKING ABOUT 2 YEARS AGO Past Drug Use History: None Reported - Past Family History Mother Family Medical History: Osteoarthritis (OA) Medications and Allergies Home Medications Medication Instructions Recorded Confirmed Type Pnv No.95/Ferrous Fum/Folic AC 1 tab PO DAILY 01/19/21 11/04/23 History [ Multivitamin Tablet] Cholecalciferol [Vitamin D3 (25 50 mcg PO DAILY 01/17/22 11/04/23 History Mcg = 1000 Iu)] Sertraline [Zoloft] 50 mg PO DAILY 11/04/23 11/04/23 History Allergies Allergy/AdvReac Type Severity Reaction Status Date / Time No Known Allergies Allergy Verified 11/04/23 12:52 Exam Osteopathic Statement: *. No significant issues noted on an osteopathic structural exam other than those noted in the History and Physical/Consult. Vital Signs Temp Pulse Resp BP Pulse Ox 11/05/23 07:24 98.2 F 107 H 19 127/61 99 Intake and Output 11/04/23 11/05/23 11/05/23 22:59 06:59 14:59 Other: Weight 83.007 kg Heart: Regular rate and rhythm Lungs: Clear to auscultation bilaterally Abdomen: Soft, nontender Extremities: Negative Homans sign Results Result Diagrams: 11/05/23 07:26 Abnormal Lab Results - Last 24 Hours (Table) 11/05/23 Range/Units 07:26 WBC 11.4 H (3.8-10.6) k/uL Neutrophils # 8.0 H (1.3-7.7) k/uL Assessment and Plan (1) Normal labor Current Visit: Yes Status: Acute Code(s): O80 - ENCOUNTER FOR FULL-TERM UNCOMPLICATED DELIVERY; Z37.9 - OUTCOME OF DELIVERY, UNSPECIFIED SNOMED Code(s): 87613228 (2) Previous section Current Visit: Yes Status: Acute Code(s): Z98.891 - HISTORY OF UTERINE SCAR FROM PREVIOUS SURGERY SNOMED Code(s): 440900351 (3) Family planning Current Visit: Yes Status: Acute Code(s): Z30.09 - ENCOUNTER FOR OTH GENERAL CNSL AND ADVICE ON CONTRACEPTION SNOMED Code(s): 026474635 Plan: Repeat low transverse with tubal ligation
--- NOTE | 2023-11-05 08:59 | P.OP ---
Date of Procedure: 11/05/23 Preoperative Diagnosis: 1. normal labor 2. previous 3. family planning Postoperative Diagnosis: same Procedure(s) Performed: repeat Low transverse with tubal ligation Anesthesia: spinal Surgeon: Arielle Hampton Supervisor [employer]1: Karla Calderon Estimated Blood Loss (ml): 366 IV fluids (ml): 700 Urine output (ml): 50 Pathology: other (segments of bilateral fallopian tubes) Condition: stable Disposition: floor Operative Findings: will uterus, tubes, ovaries. Viable female , Apgars 9, 9, weight 7 lbs. 1 oz. Description of Procedure: Patient was taken to the operating room where spinal anesthesia was found be adequate. She was prepped and draped in normal sterile fashion in dorsal supine position with a leftward tilt. Pfannenstiel skin incision was made the scalpel and carried through to the underlying layer of fascia with the scalpel. Fascia was incised in midline and carried bilaterally with the Armenta scissors. The superior aspect of the fascial incision was grasped with Lois clamps elevated and the underlying rectus muscles dissected off with the Armenta's. Attention was then turned to inferior aspect of same incision which in a similar fashion was grasped tented up and the underlying rectus muscles dissected off with the Armenta's. The rectus muscles were the midline and the peritoneum was identified tented up and entered sharply with the scalpel. The incision was extended superiorly and inferiorly with good visualization of the bladder. The bladder blade was inserted and the vesicouterine peritoneum was incised the Metzenbaums then carried bilaterally and bladder flap created digitally. A low transverse incision was then made on the uterus with the scalpel. This was carried bilaterally and digital manner. Infant's head delivered atraumatically, nose and mouth bulb suctioned, cord clamped and cut, handed off to waiting nurses. Apgars 9,9, weight 7 lbs. 1 oz. Placenta delivered manually, intact with three-vessel cord. The uterus is exteriorized and cleared of all clots and debris. The uterine incision was closed with 0 Vicryl in a running locked fashion. Second layer of the same sutures used in imbricating fashion to obtain excellent hemostasis. Bladder flap was then reapproximated using 2-0 Vicryl in a running fashion. Both ovaries and tubes appeared normal. the left fallopian tube was grasped with hemostat and a window was made in the mesosalpinx with the Bovie. This left fallopian tube was doubly ligated and a segment was removed. The pedicles were cauterized with the Bovie. The right fallopian tube was grasped with hemostat and a window was made in the mesosalpinx with the Bovie. The right fallopian tube was doubly ligated, segment was removed and the pedicles were cauterized with the Bovie. The uterus was placed back into the abdomen. The peritoneum was reapproximated using 2-0 Vicryl in a running fashion. The muscles were reapproximated using 2-0 Vicryl in interrupted fashion. The fascia was reapproximated using 0 Vicryl in a running fashion. The subcutaneous tissues closed with 3-0 Vicryl running fashion. The skin was closed black. Patient tolerated the procedure well, sponge and instrument counts were correct times 2 and she was taken to the recovery room in stable condition.
[2023-11-05] MEDS: OXYTOCIN 30 UNITS/500 ML NS 30 UNIT in SALINE 1 500ML.BAG IV SCH (09:23)
[2023-11-05] MEDS: diphenhydrAMINE 50 MG/ML 1 ML VIAL IVP PRN (09:54)
[2023-11-05] MEDS: LACTATED RINGERS 1,000 ML IV SCH (10:35)
[2023-11-05] MEDS: Rhogam IMMUNE GLOBULIN 1,500 UNIT/1 ML IM ONE (10:41)
[2023-11-05] MEDS: ACETAMINOPHEN TAB 500 MG TAB PO SCH (11:29)
[2023-11-05] MEDS: ONDANSETRON 4 MG/2 ML VIAL IVP PRN (13:24)
[2023-11-05] MEDS: KETOROLAC 15 MG/ML 1 ML VIAL IVP SCH (15:18)
[2023-11-05] MEDS: IBUPROFEN 600 MG TAB PO SCH (15:19)
[2023-11-05] MEDS: SENNOSIDES-DOCUSATE SODIUM 1 EACH TAB PO SCH (21:25)
[2023-11-06 08:19] LABS: Basophils % (A) 0 %; Eosinophils # (A) 0.1 k/uL (0-0.7); Eosinophils % (A) 1 %; HCT 30.7 % (34.0-46.0); HGB 10.8 gm/dL (11.4-16.0); Lymphocytes # (A) 2.3 k/uL (1.0-4.8); Lymphocytes % (A) 20 %; MCHC 35.1 g/dL (31.0-37.0); MCV 85.5 fL (80.0-100.0); Monocytes # (A) 0.7 k/uL (0-1.0); Monocytes % (A) 6 %; Neutrophils # (A) 8.2 k/uL (1.3-7.7); Neutrophils % (A) 71 %; Platelet Count 244 k/uL (150-450); RBC 3.59 m/uL (3.80-5.40); RDW 13.3 % (11.5-15.5); WBC 11.6 k/uL (3.8-10.6)
--- NOTE | 2023-11-06 14:38 | P.PN ---
Progress Note - Text Progress Note Date: 11/06/23 (0473) Anesthesia Postop day 1 Subjective: Status Post section with Duramorph. Patient seen and examined. Doing well without complaint. VAS 0. No nausea vomiting or pruritus. Denies fever. Gross lower extremity strength intact. Without apparent anesthetic complications. Objective: Vital signs reviewed Heart: Regular Rate Lungs: Good chest excursion Abdomen: Appears nondistended Assessment: Status post section with Duramorph postop day 1 Plan: 1. Continue current care with your medical management. Anticipated end to the duration of the Duramorph around surgery time today. You may see increased pain needs around this time. Advised patient to let nurse know of any growing numbness or weakness in the lower extremities 2. This note was dictated using [employer] software. Please be advised there is a potential for misspellings or errors in office rep.
[2023-11-07 07:51] VITALS: BP 125/73; PULSE 62; RESP 16; TEMP 98
--- NOTE | 2023-11-07 10:19 | P.DS ---
Providers Date of admission: 11/05/23 06:50 Expected date of discharge: 11/07/23 Attending physician: Arielle Hampton Primary care physician: Cuauhtemoc Muñoz MD - Discharge Diagnosis(es) (1) Normal labor Current Visit: Yes Status: Resolved (2) Previous section Current Visit: Yes Status: Resolved (3) Family planning Current Visit: Yes Status: Resolved (4) Status post repeat low transverse section Current Visit: Yes Status: Acute (5) Status post tubal ligation at time of delivery, current hosp Current Visit: Yes Status: Acute Hospital Course: Presented for repeat low transverse and tubal ligation. She underwent this procedure without complications. She denies nausea, vomiting, chest pain, shortness of breath or calf pain. Her incision is clean, dry, intact. Patient will be discharged home postoperative day #2 in stable condition to follow-up [facility] 2 weeks. Plan - Discharge Summary Discharge Rx Participant: Yes New Discharge Prescriptions: No Action Pnv No.95/Ferrous Fum/Folic AC [ Multivitamin Tablet] 1 tab PO DAILY Cholecalciferol [Vitamin D3 (25 Mcg = 1000 Iu)] 50 mcg PO DAILY Sertraline [Zoloft] 50 mg PO DAILY Discharge Medication List Pnv No.95/Ferrous Fum/Folic AC [ Multivitamin Tablet] 1 tab PO DAILY 01/19/21 [History] Cholecalciferol [Vitamin D3 (25 Mcg = 1000 Iu)] 50 mcg PO DAILY 01/17/22 [History] Sertraline [Zoloft] 50 mg PO DAILY 11/04/23 [History] Follow up Appointment(s)/Referral(s): Arielle Hampton DO [Doctor of Osteopathic Medicine] - 11/20/23 1:30 pm Discharge Disposition: HOME SELF-CARE
== END 2023-11-07 12:30 | disposition home or self-care (01) | DRG 539 ==
LOC: 4FBP 06:50
PROVIDERS: ADMIT Obstetrics & Gynecology; ATTEND Obstetrics & Gynecology
PROC: 0UB70ZZ Excision of Bilateral Fallopian Tubes, Open Approach (ICD-10-PCS; principal; 2023-11-05 12:00)
PROC: 10D00Z1 Extraction of Products of Conception, Low, Open Approach (ICD-10-PCS; principal; 2023-11-05 12:00)
DX: O99.344 Other mental disorders complicating childbirth (principal); O34.211 Maternal care for low transverse scar from previous cesarean delivery; F32.A Depression, unspecified; F41.0 Panic disorder [episodic paroxysmal anxiety]; F43.10 Post-traumatic stress disorder, unspecified; F90.9 Attention-deficit hyperactivity disorder, unspecified type; M41.9 Scoliosis, unspecified; Z30.2 Encounter for sterilization; Z37.0 Single live birth; Z3A.39 39 weeks gestation of pregnancy; Z79.899 Other long term (current) drug therapy; Z87.891 Personal history of nicotine dependence
CPT/HCPCS: 85025; 86850; 86900; 86901; 88302

== ENCOUNTER 2023-12-07 07:22 | Emergency (ER) | payer OTHER | END 2023-12-07 07:56 | disposition home or self-care (01) | LOC: EC 07:22 | DX: B35.4 Tinea corporis (principal) | CPT/HCPCS: 99282 ==